=== PATIENT | female | born 1960 | race Caucasian/White ===

== ENCOUNTER → 2020-11-08 | Outpatient (CLI) | payer BC, SELFPAY ==
[2020-11-08 17:33] VITALS: BMI 27.6
[2020-11-08 23:03] LABS: Rheumatoid Factor < 10.0 IU/mL (<15)
[2020-11-10 16:21] LABS: ANTINUCLEAR ANTIBODIES DIRECT Negative (Negative)
== END | disposition home or self-care (01) ==
PROVIDERS: Referring Provider Nurse Practitioner; Visit Provider Nurse Practitioner
DX: E11.65 Type 2 diabetes mellitus with hyperglycemia (principal); L40.9 Psoriasis, unspecified
CPT/HCPCS: 86038; 86225; 86235; 86431

== ENCOUNTER → 2020-11-30 | Outpatient (CLI) | payer BC, SELFPAY ==
[2020-11-30 17:22] VITALS: BMI 27.4
[2020-11-30 22:10] LABS: Absolute Lymphocyte Count 3.89 X10^3/uL (0.83-4.51); Absolute Neutrophil Count 5.2 X10^3/uL (2.0-7.7); Basophil# 0.07 X10^3/uL; Basophil% 0.7 % (0-1); Eosinophils% 2.9 % (0-5); Hematocrit 43.5 % (37-47); Lymphocyte # 3.89 X10^3/ul (4.0); Mean Corp Hgb Conc 32.2 g/dL (32-36); Mean Corpuscular Hgb 28.5 pg (27.0-32.0); Mean Corpuscular Volume 88.4 fL (81-99); Monocyte# 1.04 X10^3/uL; Monocyte% 9.9 % (0-10); NRBC Flagged by Analyzer 0 % (0-5); Neutrophil % 49.4 % (47-70); Platelet Count 454 K/mm3 (150-450); RBC Distribution Width CV 12.2 % (11.6-14.6); RBC Distribution Width SD 39.7 fl (35.1-43.9); Red Blood Count 4.92 M/mm3 (4.2-5.4); White Blood Count 10.5 K/mm3 (4.4-11.0)
[2020-11-30 22:19] LABS: AST(SGOT) 8 U/L (15-37); Alanine Aminotransfer ALT/SGPT 26 U/L (13-56); Albumin, Serum 3.7 g/dL (3.2-5.0); Alkaline Phosphatase 124 U/L (45-117); Anion Gap 4 (5-15); BUN 14 mg/dL (7-18); Calcium,Total 9.3 mg/dL (8.5-10.1); Chloride 104 mmol/L (98-107); Creatinine, Serum 0.94 mg/dL (0.55-1.02); EST Glomerular Filtration Rate 65 mL/min (>60); Est Glom Filt Rate - Afr Amer 78 mL/min (>60); Globulin 3.6 g/dL (2.2-4.2); Glucose 214 mg/dL (74-106); Potassium 4.5 mmol/L (3.5-5.1); Protein, Total 7.3 g/dL (6.4-8.2); Sodium Level 136 mmol/L (136-145)
[2020-11-30 22:32] LABS: Hemoglobin A1c 10.9 % (3.8-5.6)
== END | disposition home or self-care (01) ==
PROVIDERS: Referring Provider Nurse Practitioner; Visit Provider Nurse Practitioner
DX: L60.8 Other nail disorders (principal); E11.65 Type 2 diabetes mellitus with hyperglycemia
CPT/HCPCS: 80053; 83036; 85025

== ENCOUNTER → 2021-08-31 | Outpatient (CLI) | payer BC, SELFPAY ==
[2021-08-31 22:53] LABS: Absolute Lymphocyte Count 4.05 X10^3/uL (0.83-4.51); Basophil# 0.07 X10^3/uL; Basophil% 0.7 % (0-1); Eosinophil# 0.39 X10^3/uL; Eosinophils% 4.2 % (0-5); Hematocrit 39.8 % (37-47); Lymphocyte # 4.05 X10^3/ul (0.83-4.51); Lymphocyte % 43.2 % (19-41); Mean Corp Hgb Conc 32.7 g/dL (32-36); Mean Corpuscular Hgb 29.6 pg (27.0-32.0); Mean Corpuscular Volume 90.7 fL (81-99); Mean Platelet Vol. 9.9 fl (6.2-12.0); Monocyte# 0.86 X10^3/uL; Monocyte% 9.2 % (0-10); NRBC Flagged by Analyzer 0 % (0-5); Neutrophil # 3.98 X10^3/uL (2.7-7.7); Neutrophil % 42.5 % (47-70); Platelet Count 329 K/mm3 (150-450); RBC Distribution Width CV 12.5 % (11.6-14.6); RBC Distribution Width SD 41.2 fl (35.1-43.9); Red Blood Count 4.39 M/mm3 (4.2-5.4); White Blood Count 9.4 K/mm3 (4.4-11.0)
[2021-08-31 23:06] LABS: ALB/GLOB Ratio 1.1 RATIO (0.9-2.4); AST(SGOT) 12 U/L (15-37); Alanine Aminotransfer ALT/SGPT 17 U/L (13-56); Albumin, Serum 3.7 g/dL (3.2-5.0); Alkaline Phosphatase 59 U/L (45-117); Anion Gap 5 (5-15); BUN 8 mg/dL (7-18); BUN/Creat Ratio 10.2 RATIO (10-20); Calcium,Total 9.4 mg/dL (8.5-10.1); Chloride 106 mmol/L (98-107); Creatinine, Serum 0.79 mg/dL (0.55-1.02); EST Glomerular Filtration Rate 79 mL/min (>60); Est Glom Filt Rate - Afr Amer 95 mL/min (>60); Globulin 3.5 g/dL (2.2-4.2); Glucose 150 mg/dL (74-106); Lipase 109 U/L (73-393); Potassium 3.9 mmol/L (3.5-5.1); Protein, Total 7.2 g/dL (6.4-8.2); Sodium Level 140 mmol/L (136-145)
[2021-08-31 23:28] LABS: Hemoglobin A1c 6.9 % (3.8-5.6)
== END | disposition home or self-care (01) ==
PROVIDERS: Visit Provider Nurse Practitioner
DX: E11.65 Type 2 diabetes mellitus with hyperglycemia (principal); R19.7 Diarrhea, unspecified; R42 Dizziness and giddiness; R11.0 Nausea; Z20.822 Contact with and (suspected) exposure to COVID-19
CPT/HCPCS: 80053; 83036; 83690; 85025

== ENCOUNTER → 2021-09-01 | Outpatient (CLI) | payer BC, SELFPAY | END | disposition home or self-care (01) | LOC: LABSPEC 10:00 | PROVIDERS: Referring Provider Nurse Practitioner; Visit Provider Nurse Practitioner | DX: R11.0 Nausea (principal); R19.7 Diarrhea, unspecified; Z20.822 Contact with and (suspected) exposure to COVID-19 | CPT/HCPCS: 87635; U0005; U0003 ==

== ENCOUNTER → 2021-10-05 | Outpatient (CLI) | payer BC, SELFPAY ==
[2021-10-05 23:05] LABS: Thyroid Stim Hormone (TSH) 2.33 uIU/mL (0.358-3.74)
== END | disposition home or self-care (01) ==
PROVIDERS: Referring Provider Nurse Practitioner; Visit Provider Nurse Practitioner
DX: E03.9 Hypothyroidism, unspecified (principal)
CPT/HCPCS: 84443

== ENCOUNTER → 2022-05-03 | Outpatient (CLI) | payer BC, SELFPAY ==
[2022-05-04 00:10] LABS: Absolute Lymphocyte Count 4.02 X10^3/uL (0.83-4.51); Absolute Neutrophil Count 5.6 X10^3/uL (2.0-7.7); Basophil# 0.08 X10^3/uL; Basophil% 0.7 % (0-1); Eosinophil# 0.34 X10^3/uL; Eosinophils% 3.1 % (0-5); Hematocrit 38.1 % (37-47); Hemoglobin 12.7 g/dL (12.0-15.0); Lymphocyte # 4.02 X10^3/ul (0.83-4.51); Lymphocyte % 36.1 % (19-41); Mean Corp Hgb Conc 33.3 g/dL (32-36); Mean Corpuscular Hgb 29.7 pg (27.0-32.0); Mean Corpuscular Volume 89.2 fL (81-99); Mean Platelet Vol. 9.8 fl (6.2-12.0); Monocyte# 1.12 X10^3/uL; Monocyte% 10.1 % (0-10); NRBC Flagged by Analyzer 0 % (0-5); Neutrophil # 5.55 X10^3/uL (2.7-7.7); Neutrophil % 49.7 % (47-70); Platelet Count 352 K/mm3 (150-450); RBC Distribution Width CV 12.4 % (11.6-14.6); RBC Distribution Width SD 40.6 fl (35.1-43.9); Red Blood Count 4.27 M/mm3 (4.2-5.4); White Blood Count 11.1 K/mm3 (4.4-11.0)
[2022-05-04 00:23] LABS: ALB/GLOB Ratio 1.2 RATIO (0.9-2.4); AST(SGOT) 10 U/L (15-37); Alanine Aminotransfer ALT/SGPT 19 U/L (13-56); Albumin, Serum 3.7 g/dL (3.2-5.0); Alkaline Phosphatase 78 U/L (45-117); Anion Gap 6 (5-15); BUN 16 mg/dL (7-18); BUN/Creat Ratio 19.2 RATIO (10-20); Calcium,Total 9.1 mg/dL (8.5-10.1); Chloride 106 mmol/L (98-107); Cholesterol 149 mg/dL (200); Creatinine, Serum 0.84 mg/dL (0.55-1.02); EST Glomerular Filtration Rate 73 mL/min (>60); Est Glom Filt Rate - Afr Amer 89 mL/min (>60); Globulin 3.2 g/dL (2.2-4.2); Glucose 173 mg/dL (74-106); High Density Lipoprotein 62 mg/dL; Potassium 4.1 mmol/L (3.5-5.1); Protein, Total 6.9 g/dL (6.4-8.2); Sodium Level 138 mmol/L (136-145); Triglycerides 84 mg/dL; Very Low Density Lipoprotein 17 mg/dL (5-40)
== END | disposition home or self-care (01) ==
PROVIDERS: Visit Provider Nurse Practitioner
DX: E11.65 Type 2 diabetes mellitus with hyperglycemia (principal)
CPT/HCPCS: 80053; 80061; 83036; 85025

== ENCOUNTER → 2023-04-23 | Outpatient (CLI) | payer BC, SELFPAY ==
[2023-04-23 21:41] LABS: Absolute Lymphocyte Count 2.91 X10^3/uL (0.83-4.51); Absolute Neutrophil Count 6.9 X10^3/uL (2.0-7.7); Basophil# 0.07 X10^3/uL; Basophil% 0.6 % (0-1); Eosinophil# 0.19 X10^3/uL; Eosinophils% 1.7 % (0-5); Hematocrit 40.5 % (37-47); Hemoglobin 13.2 g/dL (12.0-15.0); Lymphocyte # 2.91 X10^3/ul (0.83-4.51); Lymphocyte % 26.6 % (19-41); Mean Corp Hgb Conc 32.6 g/dL (32-36); Mean Corpuscular Hgb 29.5 pg (27.0-32.0); Mean Corpuscular Volume 90.6 fL (81-99); Mean Platelet Vol. 9.7 fl (6.2-12.0); Monocyte% 7.3 % (0-10); NRBC Flagged by Analyzer 0 % (0-5); Neutrophil # 6.92 X10^3/uL (2.7-7.7); Neutrophil % 63.5 % (47-70); Platelet Count 380 K/mm3 (150-450); RBC Distribution Width CV 12.5 % (11.6-14.6); RBC Distribution Width SD 41.1 fl (35.1-43.9); Red Blood Count 4.47 M/mm3 (4.2-5.4); White Blood Count 10.9 K/mm3 (4.4-11.0)
[2023-04-23 22:00] LABS: AST(SGOT) 11 U/L (15-37); Alanine Aminotransfer ALT/SGPT 18 U/L (13-56); Albumin, Serum 3.7 g/dL (3.2-5.0); Alkaline Phosphatase 81 U/L (45-117); Anion Gap 3 (5-15); BUN 11 mg/dL (7-18); BUN/Creat Ratio 12.2 RATIO (10-20); Calcium,Total 9.7 mg/dL (8.5-10.1); Chloride 107 mmol/L (98-107); Cholesterol 160 mg/dL (200); EST Glomerular Filtration Rate 67 mL/min (>60); Est Glom Filt Rate - Afr Amer 81 mL/min (>60); Globulin 3.7 g/dL (2.2-4.2); Glucose 253 mg/dL (74-106); High Density Lipoprotein 67 mg/dL; Potassium 4.5 mmol/L (3.5-5.1); Protein, Total 7.4 g/dL (6.4-8.2); Sodium Level 140 mmol/L (136-145); Triglycerides 113 mg/dL; Very Low Density Lipoprotein 23 mg/dL (5-40)
== END | disposition home or self-care (01) ==
PROVIDERS: Visit Provider Nurse Practitioner
DX: E78.5 Hyperlipidemia, unspecified (principal); E11.65 Type 2 diabetes mellitus with hyperglycemia
CPT/HCPCS: 80053; 80061; 85025

== ENCOUNTER → 2024-01-16 | Outpatient (CLI) | payer BC, SELFPAY ==
[2024-01-16 22:04] LABS: Absolute Lymphocyte Count 3.89 X10^3/uL (0.83-4.51); Absolute Neutrophil Count 4.2 X10^3/uL (2.0-7.7); Basophil# 0.08 X10^3/uL; Basophil% 0.9 % (0-1); Eosinophil# 0.26 X10^3/uL; Eosinophils% 2.8 % (0-5); Hematocrit 42.3 % (37-47); Hemoglobin 13.6 g/dL (12.0-15.0); Lymphocyte # 3.89 X10^3/ul (0.83-4.51); Lymphocyte % 41.8 % (19-41); Mean Corp Hgb Conc 32.2 g/dL (32-36); Mean Corpuscular Hgb 28.6 pg (27.0-32.0); Mean Corpuscular Volume 89.1 fL (81-99); Mean Platelet Vol. 10.1 fl (6.2-12.0); Monocyte# 0.86 X10^3/uL; Monocyte% 9.2 % (0-10); NRBC Flagged by Analyzer 0 % (0-5); Neutrophil # 4.21 X10^3/uL (2.7-7.7); Neutrophil % 45.2 % (47-70); Platelet Count 351 K/mm3 (150-450); RBC Distribution Width CV 12.2 % (11.6-14.6); RBC Distribution Width SD 39.9 fl (35.1-43.9); Red Blood Count 4.75 M/mm3 (4.2-5.4); White Blood Count 9.3 K/mm3 (4.4-11.0)
[2024-01-16 22:27] LABS: ALB/GLOB Ratio 1.1 RATIO (0.9-2.4); AST(SGOT) 9 U/L (15-37); Alanine Aminotransfer ALT/SGPT 26 U/L (13-56); Albumin, Serum 3.8 g/dL (3.2-5.0); Alkaline Phosphatase 91 U/L (45-117); Anion Gap 3 (5-15); BUN 12 mg/dL (7-18); BUN/Creat Ratio 14.4 RATIO (10-20); Calcium,Total 9.4 mg/dL (8.5-10.1); Chloride 106 mmol/L (98-107); Creatinine, Serum 0.84 mg/dL (0.55-1.02); EST Glomerular Filtration Rate 73 mL/min (>60); Est Glom Filt Rate - Afr Amer 88 mL/min (>60); Globulin 3.6 g/dL (2.2-4.2); Glucose 141 mg/dL (74-106); Potassium 4.4 mmol/L (3.5-5.1); Protein, Total 7.4 g/dL (6.4-8.2); Sodium Level 140 mmol/L (136-145)
== END | disposition home or self-care (01) ==
PROVIDERS: PCP Nurse Practitioner; Visit Provider Nurse Practitioner
DX: R10.32 Left lower quadrant pain (principal); E11.65 Type 2 diabetes mellitus with hyperglycemia; J01.00 Acute maxillary sinusitis, unspecified
CPT/HCPCS: 80053; 85025

== ENCOUNTER → 2024-06-05 | Outpatient (CLI) | payer BC, SELFPAY | END | disposition home or self-care (01) | PROVIDERS: PCP Nurse Practitioner; Visit Provider Nurse Practitioner | DX: R10.32 Left lower quadrant pain (principal) | CPT/HCPCS: 87086 ==

== ENCOUNTER → 2024-12-16 | Outpatient (CLI) | payer BC, SELFPAY ==
[2024-12-16 23:01] LABS: Absolute Neutrophil Count 4.1 X10^3/uL (2.0-7.7); Basophil# 0.06 X10^3/uL; Basophil% 0.6 % (0-1); Eosinophil# 0.16 X10^3/uL; Eosinophils% 1.7 % (0-5); Hematocrit 39.2 % (37-47); Hemoglobin 12.7 g/dL (12.0-15.0); Lymphocyte % 42.8 % (19-41); Mean Corp Hgb Conc 32.4 g/dL (32-36); Mean Corpuscular Hgb 29.3 pg (27.0-32.0); Mean Corpuscular Volume 90.3 fL (81-99); Mean Platelet Vol. 9.8 fl (6.2-12.0); Monocyte# 0.99 X10^3/uL; Monocyte% 10.6 % (0-10); NRBC Flagged by Analyzer 0 % (0-5); Neutrophil # 4.12 X10^3/uL (2.7-7.7); Neutrophil % 44.1 % (47-70); Platelet Count 353 K/mm3 (150-450); RBC Distribution Width CV 12.1 % (11.6-14.6); RBC Distribution Width SD 39.8 fl (35.1-43.9); Red Blood Count 4.34 M/mm3 (4.2-5.4); White Blood Count 9.4 K/mm3 (4.4-11.0)
[2024-12-16 23:43] LABS: ALB/GLOB Ratio 1.1 RATIO (0.9-2.4); AST(SGOT) 13 U/L (15-37); Alanine Aminotransfer ALT/SGPT 17 U/L (13-56); Albumin, Serum 3.9 g/dL (3.2-5.0); Alkaline Phosphatase 61 U/L (45-117); Anion Gap 4 (5-15); BUN 12 mg/dL (7-18); BUN/Creat Ratio 14.6 RATIO (10-20); Calcium,Total 9.6 mg/dL (8.5-10.1); Chloride 105 mmol/L (98-107); Cholesterol 148 mg/dL (200); Creatinine, Serum 0.82 mg/dL (0.55-1.02); EST Glomerular Filtration Rate 74 mL/min (>60); Est Glom Filt Rate - Afr Amer 90 mL/min (>60); Globulin 3.4 g/dL (2.2-4.2); Glucose 95 mg/dL (74-106); High Density Lipoprotein 69 mg/dL; Potassium 4.2 mmol/L (3.5-5.1); Protein, Total 7.3 g/dL (6.4-8.2); Sodium Level 138 mmol/L (136-145); Triglycerides 61 mg/dL; Very Low Density Lipoprotein 12 mg/dL (5-40)
== END | disposition home or self-care (01) ==
PROVIDERS: PCP Nurse Practitioner; Visit Provider Nurse Practitioner
DX: E11.65 Type 2 diabetes mellitus with hyperglycemia (principal); M32.9 Systemic lupus erythematosus, unspecified; L60.8 Other nail disorders; E78.5 Hyperlipidemia, unspecified
CPT/HCPCS: 80053; 80061; 85025

== ENCOUNTER → 2025-10-26 | Outpatient (CLI) | payer BC, SELFPAY ==
--- OUTSIDE RECORDS SUMMARY | 2025-10-26 22:20 | XMS RPT_ITS | CCD ---
Author Organization [facility] Care Team Providers Care Chief Deputy Name Role Phone CELENA RAMOS (TIRE TRIMMER HAND) Unavailable Unavaila ble CELENA RAMOS (TIRE TRIMMER HAND) Unavailable Unavaila ble Unavailable Primary Care Provider Unavailabl e Kline CANAL SUPERINTENDENT, Madonna Primary Care Unavailable Kline CANAL SUPERINTENDENT, Madonna Attending Unavailable Kline CANAL SUPERINTENDENT, Madonna Attending Unavailable Kline CANAL SUPERINTENDENT, Madonna Primary Care Unavailable Kline CANAL SUPERINTENDENT, Madonna Attending Unavailable Kline CANAL SUPERINTENDENT, Madonna Primary Care Unavailable SELF Referring Unavailable Kline CANAL SUPERINTENDENT-C, Madonna Primary Care Provider [phone] Kline CANAL SUPERINTENDENT-C, Madonna Attending Provider [phone] Kline CANAL SUPERINTENDENT-C, Madonna Referring Provider [phone] Allergies Allergy Classification Reported Allergen(s) Allergy Type Date of Onset Reaction(s) Facility (8 sources) Ciprofloxacin; Translations: [CIPROFLOXACIN] Drug Allergy 5 [facility] Repository (4 sources) Latex; Translations: [LATEX] Propensity to adverse reactions to drug (disorder) 7 [facility] Repository (4 sources) levoFLOXacin; Translations: [LEVOFLOXACIN] Drug Allergy 6 [facility] Repository (4 sources) natural latex rubber; Translations: [Latex, Natural Rubber] Allergy to substance 0 [facility] Medications Current Medications Medication Drug Class(es) Dates Sig (Normalized) Sig (Original) amoxicillin 875 mg / clavulanate 125 mg oral tablet (4 sources) Penicillin-class Antibacterial Start: 03-01-2025 End: 03-11-2025 take 1 tablet by mouth twice daily amoxicillin-clavu lanate potassium (AUGMENTIN) 875-125 mg per tablet Indications: Acute non-recurrent sinusitis, unspecified location Take 1 tablet by mouth two times a day for 10 days. 20 tablet 03/01/2025 03/11/2025 Active Start: 06-05-2024 End: 12-16-2024 Amoxicillin-Pot Clavulanate 875-125 mg tablet Discontinued 1 {tbl} PO TWICE A DAY June 05, 2024 12:00am December 16, 2024 5:04pm Start: 06-11-2023 End: 06-20-2023 Amoxicillin-Pot Clavulanate 875-125 mg tablet Discontinued 1 {tbl} PO TWICE A DAY June 11, 2023 12:00am June 20, 2023 10:11am Start: 06-11-2023 End: 06-20-2023 take 1 tablet by mouth twice daily Amoxicillin-Pot Clavulanate Discontinued 1 TABLET PO TWICE A DAY June 10, 2023 11:00pm June 20, 2023 9:11am benzonatate 100 mg oral capsule (4 sources) Non-narcotic Antitussive Start: 03-01-2025 End: 03-08-2025 take 1 capsule by mouth three times daily as needed for cough benzonatate (TESSALON PERLE) 100 mg capsule Indications: Acute non-recurrent sinusitis, unspecified location Take 1 capsule by mouth three times a day as needed for cough for up to 7 days. 21 capsule 03/01/2025 03/08/2025 Active Start: 09-24-2019 End: 03-01-2025 take 1 capsule by mouth three times daily as needed for cough Benzonatate 200 mg capsule Indications: URI with cough and congestion Take 1 capsule by mouth three times a day as needed for cough. 30 capsule 10/30/2024 03/01/2025 Discontinued (Course of therapy completed) cholecalciferol 0.125 mg oral capsule (3 sources) Vitamin D Start: 11-08-2020 take 1 capsule by mouth once daily Cholecalciferol (Vitamin D3) 125 mcg (5,000 unit) capsule Active 125 ug PO DAILY November 08, 2020 1:00am clotrimazole-betamet h dip-zinc 1-0.05-20 % cmpk (2 sources) Start: 07-02-2019 clotrimazole-betame th dip-zinc 1-0.05-20 % cmpk Indications: Dry skin Apply once daily as needed 1 Box 07/02/2019 Active Dapaglifloz Propaned-Metformin (Xigduo Xr) 10-1,000 mg tablet, IR - ER, biphasic 24hr (1 source) Start: 01-17-2024 take 1 tablet by mouth once daily Dapaglifloz Propaned-Metformin (Xigduo Xr) 10-1,000 mg tablet, IR - ER, biphasic 24hr Active 1 TABLET PO DAILY January 17, 2024 12:00am doxycycline monohydrate 100 mg oral capsule (2 sources) Tetracycline-class Drug Start: 10-30-2024 End: 11-04-2024 take 1 capsule by mouth twice daily doxycycline monohydrate (MONODOX) 100 mg capsule Indications: Nasal sore Take 1 capsule by mouth two times a day for 5 days. 10 capsule 10/30/2024 11/04/2024 Active fluticasone propionate 0.05 mg/actuat metered dose nasal spray (2 sources) Corticosteroid Start: 09-24-2019 take 2 spray(s) nasal route once daily fluticasone (FLONASE) 50 mcg/actuation nasal spray Indications: Sinobronchitis Use 2 Sprays in each nostril once daily. 1 Bottle 09/24/2019 Active 24 hr loratadine 10 mg / pseudoephedrine sulfate 240 mg extended release oral tablet (4 sources) alpha-Adrenergic Agonist Start: 06-20-2023 take 1 tablet by mouth every twenty-four hours Loratadine-Pseudoep hedrine (Claritin-D 24 Hour) 10-240 mg tablet extended release 24 hr Active 1 {tbl} PO DAILY June 20, 2023 12:00am Start: 06-20-2023 take 1 tablet by katina th once daily, then take 1 tablet by mouth every twenty-four hours Loratadine-Pseudoephedrine (Claritin-D 2 4 Hour) 10-240 mg tablet extended release 24 hr Active 1 TABLET PO DAILY June 19, 2023 11:00pm Start: 03-13-2017 End: 03-01-2025 take 1 tablet by mouth once daily as needed for congestion loratadine-pseudoephedrine ER (CLARITIN- D 12 HOUR) 5-120 mg per tablet Indications: Acute recurrent maxillary sinusitis Take one tablet by mouth once daily as needed for congestion 10 tablet 03/13/2017 03/01/2025 Discontinued (Course of therapy completed) meloxicam 15 mg oral tablet (1 source) Nonsteroidal Anti-inflammatory Drug Start: 12-16-2024 take 1 tablet by mouth once daily Meloxicam 15 mg tablet Active 15 mg PO daily December 16, 2024 1:00am metFORMIN hydrochloride 1000 mg oral tablet (3 sources) Biguanide Start: 03-24-2024 End: 12-16-2024 take 1 tablet by mouth twice daily metFORMIN (GLUCOPHAGE) 1,000 mg tablet 1000 MG ORALLY TWICE A DAY 01/02/2025 Active MOUNJARO 5 mg/0.5 mL pen injector (1 source) Start: 02-24-2025 inject 5 mg by subcutaneous injection every week MOUNJARO 5 mg/0.5 mL pen injector 5 MG (0.5 ML) SUBCUTANEOUSLY EVERY WEEK FOR 30 DAYS 02/24/2025 Active mupirocin 0.02 mg/mg topical ointment (2 sources) RNA Synthetase Inhibitor Antibacterial Start: 10-30-2024 End: 11-09-2024 mupirocin (BACTROBAN) 2 % ointment Indications: Nasal sore Apply to affected area three times a day for 10 days. 15 g 10/30/2024 11/09/2024 Active 24 hr niacin 1000 mg extended release oral tablet (5 sources) Nicotinic Acid Start: 11-08-2020 take 1 tablet by mouth at bedtime Niacin 1,000 mg tablet extended release Active 1000 mg PO AT BEDTIME November 08, 2020 1:00am Start: 07-02-2018 take 1 tablet by katina th once daily at bedtime niacin ER (NIASPAN) 500 mg tablet Take 1 tablet by mouth daily at bedtime. 90 tablet 2 07/02/2018 Active pravastatin sodium 20 mg oral tablet (17 sources) HMG-CoA Reductase Inhibitor Start: 04-26-2020 End: 12-16-2024 take 1 tablet by mouth at bedtime Pravastatin 20 mg tablet Active 20 mg PO AT BEDTIME December 16, 2024 5:07pm 12 hr pseudoephedrine hydrochloride 120 mg extended release oral tablet (1 source) alpha-Adrenergi c Agonist Start: 03-01-2025 End: 03-11-2025 take 1 tablet by mouth every twelve hours Pseudoephedrine HCl (SUDAFED 12 HOUR) 120 mg TbER Indications: Acute non-recurrent sinusitis, unspecified location Take 1 tablet by mouth every 12 hours for 10 days. 20 tablet 03/01/2025 03/11/2025 Active Tirzepatide 5 mg/0.5 mL pen injector (2 sources) Start: 05-07-2025 Tirzepatide 5 mg/0.5 mL pen injector Active 5 mg SC EVERY WEEK 2.5 May 07, 2025 3:52pm Start: 04-22-2024 End: 05-07-2025 Tirzepatide 5 mg/0.5 mL pen injector Discontinued 5 mg SC EVERY WEEK 2.5 April 22, 2024 12:00am May 07, 2025 3:52pm vitamin b12 1 mg oral tablet (3 sources) Vitamin B12 Start: 11-08-2020 take 1 tablet by mouth once daily Cyanocobalamin (Vitamin B-12) 1,000 mcg tablet Active 1000 ug PO DAILY November 08, 2020 1:00am vitamin e 90 mg oral capsule (3 sources) Start: 11-08-2020 take 1 capsule by mouth twice daily Vitamin E 200 unit capsule Active 200 U PO TWICE A DAY November 08, 2020 1:00am Zinc (3 sources) Start: 12-22-2020 take 1 tablet by mouth once daily Zinc 50 mg tablet Active 50 mg PO DAILY December 22, 2020 1:00am Start: 12-22-2020 take 50 mg by mouth once daily Zinc Active 50 MG PO DAILY December 22, 2020 12:00am Start: 12-22-2020 take 50 mg by mouth once daily Zinc Active 50 MG PO DAILY December 22, 2020 1:00am Completed/Discontinued Medications Medication Drug Class(es) Dates Sig (Normalized) Sig (Original) clarithromycin 500 mg oral tablet (6 sources) Macrolide Antimicrobial Start: 06-20-2023 End: 06-05-2024 take 1 tablet by mouth twice daily Clarithromycin 500 mg tablet Discontinued 500 mg PO TWICE A DAY July 31, 2023 2:47pm January 16, 2024 6:27pm 24 hr dapagliflozin 10 mg / metFORMIN hydrochloride 1000 mg extended release oral tablet (1 source) Biguanide, Sodium-Glucose Cotransporter 2 Inhibitor Start: 01-17-2024 End: 03-24-2024 Dapaglifloz Propaned-Metformin (Xigduo Xr) 10-1,000 mg tablet, IR - ER, biphasic 24hr Discontinued 1 {tbl} PO DAILY January 17, 2024 1:00am March 24, 2024 1:42pm Dulaglutide (20 sources) GLP-1 Receptor Agonist Start: 04-23-2023 End: 03-24-2024 Dulaglutide 3 mg/0.5 mL pen injector Discontinued 3 mg SC EVERY WEEK 6.5 April 23, 2023 12:00am March 24, 2024 1:42pm Start: 04-23-2023 Dulaglutide Ac tive 3 MG SC EVERY WEEK 6.5 April 22, 2023 11:00pm Start: 01-13-2021 End: 04-23-2023 Dulaglutide (Trulicity) 1.5 mg/0.5 mL pen injector Discontinued 1.5 mg SC EVERY WEEK February 01, 2022 3:39pm May 03, 2022 5:19pm Start: 11-30-2020 End: 12-22-2020 Dulaglutide (Trulicity) 0.75 mg/0.5 mL pen injector Discontinued 0.75 mg SC EVERY WEEK 2.5 December 22, 2020 6:11pm December 22, 2020 6:21pm fluconazole 100 mg oral tablet (12 sources) Azole Antifungal Start: 05-03-2022 End: 04-23-2023 take 1 tablet by mouth once daily Fluconazole 100 mg tablet Discontinued 100 mg PO daily May 03, 2022 12:00am April 23, 2023 3:14pm Start: 11-30-2020 End: 03-09-2021 take 1 tablet by mouth once daily Fluconazole 100 mg tablet Discontinued 100 mg PO daily March 09, 2021 5:14pm March 09, 2021 5:30pm glipiZIDE 10 mg oral tablet (7 sources) Sulfonylurea Start: 11-08-2020 End: 12-22-2020 take 1 tablet by mouth once daily Glipizide 10 mg tablet Discontinued 10 mg PO DAILY November 08, 2020 1:00am December 22, 2020 6:09pm Start: 02-16-2020 End: 10-30-2024 take 1 tablet by mouth twice daily Glipizide 10 mg tablet Discontinued 10 mg PO TWICE A DAY December 22, 2020 6:09pm January 13, 2021 6:05pm hydroxychloroquine sulfate 200 mg oral tablet (18 sources) Antimalarial, Antirheumatic Agent Start: 03-15-2021 End: 12-16-2024 take 1 tablet by mouth twice daily Hydroxychloroquine 200 mg tablet Discontinued 200 mg PO TWICE A DAY 180 February 01, 2022 3:39pm May 03, 2022 5:19pm Start: 03-09-2021 End: 03-15-2021 take 1 tablet by mouth once daily Hydroxychloroquine 200 mg tablet Discontinued 200 mg PO DAILY 90 March 09, 2021 12:00am March 15, 2021 2:24pm metFORMIN hydrochloride 1000 mg / SITagliptin 50 mg oral tablet (16 sources) Biguanide, Dipeptidyl Peptidase 4 Inhibitor Start: 07-20-2020 End: 03-24-2024 Sitagliptin Phos-Metformin (Janumet) 50-1,000 mg tablet Discontinued 1 {tbl} PO TWICE A DAY 180 January 16, 2024 6:36pm March 24, 2024 1:42pm metroNIDAZOLE 250 mg oral tablet (3 sources) Nitroimidazole Antimicrobial Start: 06-05-2024 End: 06-15-2024 take 1 tablet by mouth three times daily Metronidazole 250 mg tablet Discontinued 250 mg PO THREE TIMES A DAY 30 June 05, 2024 12:00am June 14, 2024 12:00am June 15, 2024 12:04am Start: 01-16-2024 End: 01-26-2024 take 1 tablet by mouth three times daily Metronidazole 250 mg tablet Discontinued 250 mg PO THREE TIMES A DAY 30 January 16, 2024 1:00am January 25, 2024 1:00am January 26, 2024 1:16am promethazine hydrochloride 12.5 mg oral tablet (3 sources) Phenothiazine Start: 08-31-2021 End: 10-05-2021 take 1 tablet by mouth every six hours as needed for nausea and vomiting Promethazine 12.5 mg tablet Discontinued 12.5 mg PO EVERY 6 HOURS as needed for nausea and vomiting August 31, 2021 12:00am October 05, 2021 6:35pm Tirzepatide 2.5 mg/0.5 mL pen injector (1 source) Start: 03-24-2024 End: 04-21-2024 Tirzepatide 2.5 mg/0.5 mL pen injector Discontinued 2.5 mg SC EVERY WEEK 01 16March 24, 2024 12:00am April 20, 2024 12:00am April 21, 2024 12:05am Problems Active Problems Problem Classification Problem Date Documented Da te Episodic/Chronic Abdominal pain (4 sources) Left lower quadrant pain; Translations: [Left lower quadrant pain] Onset: 06-19-2024 01-16-2024 Episodic Conditions associated with dizziness or vertigo (3 sources) Dizziness; Translations: [Dizziness and giddiness] 08-31-2021 Episodic Diabetes mellitus with complications (4 sources) Type II diabetes mellitus uncontrolled; Translations: [Uncontrolled type 2 diabetes mellitus] Onset: 01-03-2025 03-10-2021 Chronic Diabetes mellitus without complication (3 sources) Type 2 diabetes mellitus without complications; Translations: [Type 2 diabetes mellitus without complication] Onset: 11-14-2017 11-14-2017 Chronic Disorders of lipid metabolism (6 sources) Mixed hyperlipidemia; Translations: [Hyperlipidemia] Onset: 11-14-2017 05-04-2022 Chronic Genitourinary symptoms and ill-defined conditions (2 sources) Increased frequency of urination; Translations: [Frequency of micturition] 05-25-2023 Episodic Immunizations and screening for infectious disease (4 sources) Encounter for immunization; Translations: [Contact with or exposure to other viral diseases] Onset: 10-16-2018 08-31-2021 Episodic Mycoses (6 sources) Candidal vulvovaginitis; Translations: [Candidiasis of vulva and vagina] 12-01-2020 Episodic Nausea and vomiting (3 sources) Nausea; Translations: [Nausea] 08-31-2021 Episodic Other connective tissue disease (3 sources) Hand pain; Translations: [Pain in right hand] 12-01-2020 Episodic Other connective tissue disease (3 sources) Swelling of hand; Translations: [Other specified soft tissue disorders] 12-01-2020 Episodic Other gastrointestinal disorders (3 sources) Diarrhea; Translations: [Diarrhea, unspecified] 10-07-2021 Episodic Other lower respiratory disease (2 sources) Cough; Translations: [Cough] 06-11-2023 Episodic Other non-traumatic joint disorders (1 source) Bilateral pain of joint of hands; Translations: [Pain in joints of right hand] 12-16-2024 Episodic Other skin disorders (3 sources) Pitting of nails; Translations: [Other nail disorders] 11-09-2020 Episodic Other upper respiratory disease (1 source) Lesion of nose; Translations: [Other specified disorders of nose and nasal sinuses] 10-30-2024 Episodic Other upper respiratory infections (1 source) Chronic sinusitis; Translations: [Chronic sinusitis, unspecified] 10-30-2024 Chronic Other upper respiratory infections (5 sources) Acute maxillary sinusitis; Translations: [Acute maxillary sinusitis, unspecified] 06-11-2023 Episodic Substance-related disorders (3 sources) Nicotine dependence, unspecified, uncomplicated; Translations: [Tobacco user] Onset: 11-14-2017 10-16-2018 Chronic Systemic lupus erythematosus and connective tissue disorders (3 sources) Lupus erythematosus; Translations: [Systemic lupus erythematosus, unspecified] 05-04-2022 Chronic Thyroid disorders (3 sources) Hypothyroidism; Translations: [Hypothyroidism, unspecified] 10-07-2021 Chronic Past or Other Problems Problem Classification Problem Date Documented Da te Episodic/Chronic Other skin disorders (2 sources) Xeroderma; Translations: [Xerosis cutis] Onset: 11-14-2017 Resolved: 10-16-2018 10-16-2018 Episodic Results Test Name Value Interpretation Reference Range Facility [facility] 03-01-2025 [facility] Office Visit (DEMETRISWA) BELGICA MARTINEZ ([id number]) 1960 F Date Time Provider Department 03/01/25 9:00 AM MAYTE SHULTZ During your visit today, we recorded the following information about you: Temperature Pulse Respiration Blood pressure 98.8 degrees 92/minute 16/minute 94/57 Weight 48.7 kg Mayte Shultz PA-C 03/01/2025 9:26 AM Signed This note was created using NoteWriter. Subjective Belgicamatt Martinez is a 64 year old female. Patient is a 64-year-old female who complains of worsening congestion, sinus pressure, facial pain, sore throat and loose cough that she has been experiencing for the past 3 weeks. Patient reports no fever, chills or myalgia. Patient states that her symptoms are significantly worse at night and when she awakens in the morning. Patient has no history of asthma or COPD and states that she smokes occasionally. Sinus Problem Associated symptoms include congestion, coughing and a sore throat. Review of Systems HENT: Positive for congestion, ear pain, postnasal drip, sinus pressure, sinus pain and sore throat. Respiratory: Positive for cough. All other systems reviewed and are negative. Objective BP 94/57 Pulse 92 Temp 37.1 ?C (98.8 ?F) Resp 16 Wt 48.7 kg (107 lb 5.8 oz) SpO2 96% BMI 18.43 kg/m? Physical Exam Vitals and nursing note reviewed. Constitutional: Appearance: Normal appearance. She is normal weight. HENT: Head: Normocephalic and atraumatic. Right Ear: Tympanic membrane, ear canal and external ear normal. Left Ear: Tympanic membrane, ear canal and external ear normal. Nose: Congestion present. Mouth/Throat: Mouth: Mucous membranes are moist. Pharynx: Oropharynx is clear. Eyes: Extraocular Movements: Extraocular movements intact. Conjunctiva/sclera: Conjunctivae normal. Pupils: Pupils are equal, round, and reactive to light. Cardiovascular: Rate and Rhythm: Normal rate and regular rhythm. Pulses: Normal pulses. Heart sounds: Normal heart sounds. Pulmonary: Effort: Pulmonary effort is normal. Breath sounds: Normal breath sounds. Musculoskeletal: Cervical back: Normal range of motion and neck supple. Skin: General: Skin is warm and dry. Capillary Refill: Capillary refill takes less than 2 seconds. Neurological: General: No focal deficit present. Mental Status: She is alert and oriented to person, place, and time. Psychiatric: Mood and Affect: Mood normal. Behavior: Behavior normal. Thought Content: Thought content normal. Judgment: Judgment normal. Assessment and Plan Physical exam findings as noted above. Patient was provided with prescriptions for Augmentin 875-125 mg, Sudafed 120 mg and Tessalon 100 mg. Supportive care instructions were discussed and the patient verbalizes clear understanding of same. CLINICAL IMPRESSION: Acute Sinusitis ASSESSMENT/PLAN: 1. Acute non-recurrent sinusitis, unspecified location - ICD9: 461.9, ICD10: J01.90 - AMOXICILLIN 875 MG-POTASSIUM CLAVULANATE 125 MG TABLET - BENZONATATE 100 MG CAPSULE - PSEUDOEPHEDRINE ER 120 MG TABLET,EXTENDED RELEASE MDM Risk of Complications, Morbidity, and/or Mortality Presenting problems: low Diagnostic procedures: low Management options: low Mayte Shultz PA-C Referring Provider: SELF [200] Allergies As of Date: 03/01/2025 Noted Allergy Reaction CIPROFLOXACIN 07/15/2015 2 - Rash LATEX 11/22/2016 2 - Rash Levaquin (LEVOFLOXACIN) 09/11/2016 4 - Hives Date Reviewed: 03/01/2025 Reviewed by: Elle Mares MA - Fully Assessed Reason for Visit: Sinus Problem [99] Cmt: Has had cough and congestion for 3 weeks, has been using otc meds with no releif Primary Visit Diagnosis:Acute non-recurrent sinusitis, unspecified location [J01.90] Order(s):amoxicillin -clavulanate potassium (AUGMENTIN) 875-125 mg per tabletTake 1 tablet by mouth two times a day for 10 days.Disp: 20 tabletRfl: 0 benzonatate (TESSALON PERLE) 100 mg capsuleTake 1 capsule by mouth three times a day as needed for cough for up to 7 days.Disp: 21 capsuleRfl: 0 Pseudoephedrine HCl (SUDAFED 12 HOUR) 120 mg TbERTake 1 tablet by mouth every 12 hours for 10 days.Disp: 20 tabletRfl: 0 Prescriptions as of 03/01/2025 - metFORMIN (GLUCOPHAGE) 1,000 mg tablet 1000 MG ORALLY TWICE A DAY - MOUNJARO 5 mg/0.5 mL pen injector 5 MG (0.5 ML) SUBCUTANEOUSLY EVERY WEEK FOR 30 DAYS - amoxicillin-clavulan ate potassium (AUGMENTIN) 875-125 mg per tablet Take 1 tablet by mouth two times a day for 10 days. - benzonatate (TESSALON PERLE) 100 mg capsule Take 1 capsule by mouth three times a day as needed for cough for up to 7 days. - Pseudoephedrine HCl (SUDAFED 12 HOUR) 120 mg TbER Take 1 tablet by mouth every 12 hours for 10 days. - JANUMET 50-1,000 mg per tablet TAKE 1 TABLET BY MOUTH TWICE A DAY WITH MEALS - pravastatin (PRAVACHOL) 20 mg tablet TAKE 1 TA (more content not included)... Normal [facility] CBC W/Diff, Automatedon 11-20 Absolute Lymph 4.00 X10 3/uL Normal 0.83-4.51 [facility] Comment on above: Performed By: #### L 500.4100, L500.4050, L100.0100 #### [facility] [address] [place], [address] Absolute Neut 4.1 X10 3/uL Normal 2.0-7.7 [facility] Comment on above: Performed By: #### L 500.4100, [id number], L100.0100 #### [facility] [address] [place], [address] Basophils/100 WBC (Bld) 0.6 % Normal 0-1 [facility] Comment on above: Performed By: #### L 500.4100, [id number], L100.0100 #### [facility] [address] [place], [address] Eosinophils/100 WBC (Bld) 1.7 % Normal 0-5 [facility] Comment on above: Performed By: #### L 500.4100, [id number], L100.0100 #### [facility] [address] [place], [address] Erythrocyte distribution width (RBC) [Ratio] 12.1 % Normal 11.6-14.6 [facility] Comment on above: Performed By: #### L 500.4100, [id number], [id number] #### [facility] [address] [place], [address] Hematocrit (Bld) [Volume fraction] 39.2 % Normal 37-47 [facility] Comment on above: Performed By: #### L 500.4100, [id number], [id number] #### [facility] [address] [place], [address] Hemoglobin (Bld) [Mass/Vol] 12.7 g/dL Normal 12.0-15.0 [facility] Comment on above: Performed By: #### L 500.4100, [id number], L100.0100 #### [facility] [address] [place], [address] IG% 0.200 Normal 0.0-0.9 [facility] Comment on above: Result Comment: IG% - Immature Granulocytes (promyelocytes, myelocytes and metamyelocytes) > 1% indicates that a LEFT SHIFT is Present. Performed By: #### L 500.4100, [id number], L100.0100 #### [facility] [address] [place], [address] Lymphocytes/100 WBC (Bld) 42.8 % High 19-41 [facility] Comment on above: Performed By: #### L 500.4100, [id number], L100.0100 #### [facility] [address] [place], [address] MCH (RBC) [Entitic mass] 29.3 pg Normal 27.0-32.0 [facility] Comment on above: Performed By: #### L 500.4100, [id number], L100.0100 #### [facility] [address] [place], [address] MCHC (RBC) [Mass/Vol] 32.4 g/dL Normal 32-[address] [facility] Comment on above: Performed By: #### L 500.4100, [id number], L100.0100 #### [facility] [address] [place], [address] MCV (RBC) [Entitic vol] 90.3 fL Normal 81-99 [facility] Comment on above: Performed By: #### L 500.4100, [id number], L100.0100 #### [facility] [address] [place], [address] Monocytes/100 WBC (Bld) 10.6 % High 0-10 [facility] Comment on above: Performed By: #### L 500.4100, [id number], L100.0100 #### [facility] [address] [place], [address] Neutrophils/100 WBC (Bld) 44.1 % Low 47-70 [facility] Comment on above: Performed By: #### L 500.4100, [id number], L100.0100 #### [facility] [address] [place], [address] Nucleated RBC (Bld) [#/Vol] 0 10*3/uL Normal 0-5 [facility] Comment on above: Performed By: #### L 500.4100, [id number], L100.0100 #### [facility] [address] [place], [address] Platelet mean volume (Bld) [Entitic vol] 9.8 fL Normal 6.2-12.0 [facility] Comment on above: Performed By: #### L 500.4100, [id number], L100.0100 #### [facility] Laboratory [address] [place], [address] Platelets (Bld) [#/Vol] 353 10*3/uL Normal 150-450 [facility] Comment on above: Performed By: #### L 500.4100, L500.4050, L100.0100 #### [facility] [address] [place], [address] RBC (Bld) [#/Vol] 4.34 10*6/uL Normal 4.2-5.4 [facility] Comment on above: Performed By: #### L 500.4100, L500.4050, L100.0100 #### [facility] [address] [place], [address] RDW SD 39.8 fl Normal 35.1-43.9 [facility] Comment on above: Performed By: #### L 500.4100, L500.4050, L100.0100 #### [facility] [address] [place], [address] WBC (Bld) [#/Vol] 9.4 10*3/uL Normal 4.4-11.0 [facility] Comment on above: Performed By: #### L 500.4100, L500.4050, L100.0100 #### [facility] [address] [place], [address] Comprehensive Metabolic Prof [facility] 12-16-2024 Albumin [Mass/Vol] 3.9 g/dL Normal 3.2-5.0 [facility] Comment on above: Performed By: #### L 500.4100, L500.4050, L100.0100 #### [facility] [address] [place], [address] Albumin/Globulin [Mass ratio] 1.1 {ratio} Normal 0.9-2.4 [facility] Comment on above: Performed By: #### L 500.4100, L500.4050, L100.0100 #### [facility] [address] [place], [address] ALK P 61 U/L Normal 45-117 [facility] Comment on above: Performed By: #### L 500.4100, L500.4050, L100.0100 #### [facility] [address] [place], [address] ALT [Catalytic activity/Vol] 17 U/L Normal 13-56 [facility] Comment on above: Performed By: #### L 500.4100, L500.4050, L100.0100 #### [facility] [address] [place], [address] AST [Catalytic activity/Vol] 13 U/L Low 15-37 [facility] Comment on above: Performed By: #### L 500.4100, L500.4050, L100.0100 #### [facility] [address] [place], [address] Bilirubin [Mass/Vol] 0.30 mg/dL Normal 0.20-1.00 [facility] Comment on above: Result Comment: For patients on eltrombopag therapy, use of Dimension [place] TBIL is not recommended. Performed By: #### L 500.4100, L500.4050, L100.0100 #### [facility] [address] [place], [address] BUN/CRE 14.6 RATIO Normal 10-20 [facility] Comment on above: Performed By: #### L 500.4100, L500.4050, L100.0100 #### [facility] [address] [place], [address] CA,Total 9.6 mg/dL Normal 8.5-10.1 [facility] Comment on above: Performed By: #### L 500.4100, L500.4050, L100.0100 #### [facility] [address] [place], [address] Chloride [Moles/Vol] 105 mmol/L Normal 98-107 [facility] Comment on above: Performed By: #### L 500.4100, L500.4050, L100.0100 #### [facility] [address] [place], [address] CO2 [Moles/Vol] 30.0 mmol/L Normal 21.0-32.0 [facility] Comment on above: Performed By: #### L 500.4100, L500.4050, L100.0100 #### [facility] [address] [place], [address] Creatinine [Mass/Vol] 0.82 mg/dL Normal 0.55-1.[address] [facility] Comment on above: Result Comment: The validity of the calculated GFR GFRAA in patients over 70 years has not been determined. Clinical correlation is essential. Performed By: #### L 500.4100, L500.4050, L100.0100 #### [facility] [address] [place], [address] EST GFR - AA 90 mL/min Normal >60 [facility] Comment on above: Result Comment: Afri can [place]an GFR Calc Performed By: #### L 500.4100, L500.4050, L100.0100 #### [facility] [address] [place], [address] GAP 4 Low 5-15 [facility] Comment on above: Performed By: #### L 500.4100, L500.4050, L100.0100 #### [facility] [address] [place], [address] GFR/1.73 sq M.predicted among non-blacks MDRD (S/P/Bld) [Vol rate/Area] 74 mL/min/{1.73_m2} Normal >60 [facility] Comment on above: Result Comment: Non- GFR Calc Performed By: #### L 500.4100, L500.4050, L100.0100 #### [facility] [address] [place], [address] Globulin (S) [Mass/Vol] 3.4 g/dL Normal 2.2-4.2 [facility] Comment on above: Performed By: #### L 500.4100, L500.4050, L100.0100 #### [facility] [address] [place], [address] Glucose [Mass/Vol] 95 mg/dL Normal 74-106 [facility] Comment on above: Performed By: #### L 500.4100, L500.4050, L100.0100 #### [facility] [address] [place], [address] Potassium [Moles/Vol] 4.2 mmol/L Normal 3.5-5.[address] [facility] Comment on above: Performed By: #### L 500.4100, L500.4050, L100.0100 #### [facility] [address] [place], [address] Sodium [Moles/Vol] 138 mmol/L Normal 136-145 [facility] Comment on above: Performed By: #### L 500.4100, L500.4050, L100.0100 #### [facility] [address] [place], [address] T PROT 7.3 g/dL Normal 6.4-8.2 [facility] Comment on above: Performed By: #### L 500.4100, L500.4050, L100.0100 #### [facility] [address] [place], [address] Urea nitrogen [Mass/Vol] 12 mg/dL Normal 7-18 [facility] Comment on above: Performed By: #### L 500.4100, L500.4050, L100.0100 #### [facility] [address] [place], [address] Lipid Profileon 12-16-2024 Cholesterol [Mass/Vol] 148 mg/dL Normal 200 [facility] Comment on above: Result Comment: <200 mg/dL Desirable 200-240 mg/dL Borderline >240 mg/dL High Risk Performed By: #### L 500.4100, L500.4050, L100.0100 #### [facility] [address] [place], [address] Cholesterol in HDL [Mass/Vol] 69 mg/dL Normal [facility] Comment on above: Result Comment: The drugs N-Acetylcysteine and Metamizole may falsely depress this assay. Reference Range HDL <40 mg/dL Low HDL Cholesterol HDL >or= 60 mg/dL High HDL Cholesterol Performed By: #### L 500.4100, L500.4050, L100.0100 #### [facility] [address] [place], [address] Cholesterol in LDL [Mass/Vol] 67 mg/dL Normal 0-130 [facility] Comment on above: Performed By: #### L 500.4100, L500.4050, L100.0100 #### [facility] [address] [place], [address] Cholesterol in VLDL [Mass/Vol] 12 mg/dL Normal 5-40 [facility] Comment on above: Performed By: #### L 500.4100, L500.4050, L100.0100 #### [facility] [address] [place], [address] Triglyceride [Mass/Vol] 61 mg/dL Normal [facility] Comment on above: Result Comment: The drugs N-Acetylcysteine and Metamizole may falsely depress this assay. Serum Triglycerides Reference Interval Normal <150 mg/dL Borderline high 150 - 199 mg/dL High 200 - 499 mg/dL Very High > or = 500 mg/dL Performed By: #### L 500.4100, L500.4050, L100.0100 #### [facility] [address] [place], [address] CNOVon 10-30-2024 CNOV Office Visit (WALKWA) KINGSLEYBELGICA ([id number]) 1960 F Date Time Provider Department 10/30/24 9:40 AM ISAIAS ESQUIVEL During your visit today, we recorded the following information about you: Temperature Pulse Blood pressure Weight 98.6 degrees 92/minute 114/76 51 kg Isaias Esquivel PA-C 10/30/2024 10:09 AM Signed Surgical mask and gloves worn for all in-person care. 10/30/2024 Patient presents with: Viral Syndrome: Congestion for 4 days, sore throat ears feel congestion SUBJECTIVE: This is a 64 year old that is here today for concern for URI symptoms. HPI per the patient. The patient complains of cough, ear fullness, sore throat, and sinus congestion/pressure/ drainage x 4-5 days. She reports feeling feverish 2-3 days ago, but no temps taken. No feeling like that since. Has a large, tender, sore in the left nostril. Denies chills, sweats, body aches. Patient denies wheezing, shortness of breath, increased WOB, or chest pain. COVID exposure: none Influenza exposure: none RSV exposure: none Covid Immunization Dates Overdue - Covid-19 Vaccine ( season) Overdue since 07/20/2024 09/26/2021 Outside Immunization: COVID-19, mRNA, LNP-S, PF, 100 mcg/0.5mL dose or 50 mcg/0.25mL dose 03/14/2021 Outside Immunization: COVID-19, mRNA, LNP-S, PF, 100 mcg/0.5mL dose or 50 mcg/0.25mL dose 02/17/2021 Outside Immunization: COVID-19, mRNA, LNP-S, PF, 100 mcg/0.5mL dose or 50 mcg/0.25mL dose COVID vaccine this year: none Influenza vaccine this year: none RSV vaccine this year: none Asthma: none Pneumonia: none Tobacco: none Pain on scale of 0-10 with 0 being no pain and 10 being greatest pain: - Nothing makes the symptoms better. Nothing makes them worse. Self-treatment:. none The severity is mild and the symptoms are not improving. The patient did not have a similar problem in the last 3 months. The patient did not take any antibiotics in the last 3 months. Barriers to learning: none. Reviewed meds, OTCs, herbals or supplements. Reviewed allergies, medications, social history, and past medical history. PAST MEDICAL HISTORY Diagnosis Date Arthritis Diabetes (HCC) History of migraine headaches Hyperlipidemia ALLERGIES Ciprofloxacin, Latex, and Levaquin [Levofloxacin] MEDICATIONS Current Outpatient Medications Medication Sig JANUMET 50-1,000 mg per tablet TAKE 1 TABLET BY MOUTH TWICE A DAY WITH MEALS pravastatin (PRAVACHOL) 20 mg tablet TAKE 1 TABLET BY MOUTH EVERY DAY glipiZIDE (GLUCOTROL) 10 mg tablet TAKE 1 TABLET BY MOUTH TWICE A DAY BEFORE MEALS fluticasone (FLONASE) 50 mcg/actuation nasal spray Use 2 Sprays in each nostril once daily. Benzonatate 200 mg capsule Take 1 capsule by mouth three times daily as needed for Cough. clotrimazole-betamet h dip-zinc 1-0.05-20 % cmpk Apply once daily as needed blood sugar diagnostic (MesosphereTOUCH ULTRA TEST) test strip Patient tests twice daily DX E11.9 PLEASE FILL WITH ONE TOUCH ULTRA2 BLUE niacin ER (NIASPAN) 500 mg tablet Take 1 tablet by mouth daily at bedtime. loratadine-pseudoeph edrine ER (CLARITIN-D 12 HOUR) 5-120 mg per tablet Take one tablet by mouth once daily as needed for congestion Lancets (ONETOUCH ULTRASOFT LANCETS) lancets Patient tests twice daily DX E11.9 PLEASE FILL WITH ONE TOUCH ULTRA2 No current facility-administere d medications for this visit. Medications and allergies reviewed by this provider. SOCIAL HISTORY Social History Tobacco Use Smoking status: Every Day Types: Cigarettes Smokeless tobacco: Never Substance Use Topics Alcohol use: No Drug use: No REVIEW OF SYSTEMS Review of Systems Constitutional: Negative. HENT: Positive for congestion, postnasal drip, rhinorrhea and sinus pressure. Ear fullness Eyes: Negative. Respiratory: Positive for cough. Negative for chest tightness. Cardiovascular: Negative. Gastrointestinal: Negative. Endocrine: Negative. Genitourinary: Negative. Musculoskeletal: Negative. Skin: Negative. Nasal sore Allergic/Immunologic : Negative. Neurological: Negative. Hematological: Negative. Psychiatric/Behavior al: Negative. All other systems reviewed and are negative. OBJECTIVE: BP 114/76 Pulse 92 Temp 37 ?C (98.6 ?F) Wt 51 kg (112 lb 7 oz) SpO2 100% BMI 19.30 kg/m? . Vital signs reviewed by this provider. Physical Exam Vitals reviewed. Constitutional: General: She is not in acute distress. Appearance: Normal appearance. She is well-developed and normal weight. She is not ill-appearing, toxic-appearing or diaphoretic. HENT: Head: Normocephalic and atraumatic. No right periorbital erythema or left periorbital erythema. Salivary Glands: Right salivary gland is not diffusely enlarged or tender. Left salivary gland is not diffusely enlarged or tender. Right Ear: Tympanic membrane, ear canal and exte (more content not included)... Normal [facility] COVID AND INFLUENZA A/B AND RSV PCR, ROUTINEon 10-30-2024 SARS-CoV-2 (COVID-19) RNA NARESH+probe Ql (Unsp spec) SARS-COV-2 (AGENT OF COVID-19) RNA: Not detected INFLUENZA A RNA: Not detected INFLUENZA B RNA: Not detected RESPIRATORY SYNCYTIAL VIRUS (RSV) RNA: Not detected Normal [facility] Comment on above: Performed By: #### C VFLRS #### [facility] CLIA [id number] [address] [place] [address] [place] STREP A MOLECULAR (POC)on Procedural Control Valid [facility] Strep A (POCT) Negative Negative [facility] Urine Cultureon 06-07-2024 [facility] Culture exhibits no growth. Normal [facility] Comment on above: Performed By: #### M 100.0309 #### [facility] [address] [place], [place], [id number] Absolute lymphocyte countOrd ered By: Madonna Kline on 01-16-2024 Lymphocytes Auto (Unsp spec) [#/Vol] 3.89 10*3/uL 0.83-4.51 [facility] Automated lymphocyte count a s percentage of total leukocytesOrdered By: Madonna Kline on 01-16-2024 Lymphocytes/100 WBC Auto (Unsp spec) 41.8 % 19-41 [facility] Basophil percentageOrdered B y: Madonna Kline on 01-16-2024 Basophils/100 WBC (Bld) 0.9 % 0-1 [facility] Bilirubin [Mass/Vol] 0.20 mg/dL 0.20-1.00 [facility] Comment on above: For patients on eltr ombopag therapy, use of Dimension [place] TBIL is not recommended. Chloride [Moles/Vol] 106 mmol/L 98-107 [facility] Eosinophils/100 WBC (Bld) 2.8 % 0-5 [facility] Glucose [Mass/Vol] 141 mg/dL 74-106 [facility] Comment on above: Fasting Glucose resu lt greater than or equal to 126 mg/dL suggests DIABETES MELLITUS per A.D.A. criteria. Hemoglobin (Bld) [Mass/Vol] 13.6 g/dL 12.0-15.0 [facility] Monocytes/100 WBC (Bld) 9.2 % 0-10 [facility] Neutrophils (Bld) [#/Vol] 4.2 10*3/uL 2.0-7.7 [facility] Neutrophils/100 WBC (Bld) 45.2 % 47-70 [facility] Potassium [Moles/Vol] 4.4 mmol/L 3.5-5.[address] [facility] Protein [Mass/Vol] 7.4 g/dL 6.4-8.2 [facility] Sodium [Moles/Vol] 140 mmol/L 136-145 [facility] WBC (Bld) [#/Vol] 9.3 10*3/uL 4.4-11.0 [facility] CBC W/Diff, Automatedon 12-21 Absolute Lymph 3.89 X10 3/uL Normal 0.83-4.51 [facility] Comment on above: Performed By: #### L 100.0100, L500.4050 #### [facility] [employer] [place], [address] Absolute Neut 4.2 X10 3/uL Normal 2.0-7.7 [facility] Comment on above: Performed By: #### L 100.0100, L500.4050 #### [facility] [address] [place], [address] Basophils/100 WBC (Bld) 0.9 % Normal 0-1 [facility] Comment on above: Performed By: #### L 100.0100, L500.4050 #### [facility] [address] [place], [address] Eosinophils/100 WBC (Bld) 2.8 % Normal 0-5 [facility] Comment on above: Performed By: #### L 100.0100, L500.4050 #### [facility] [address] [place], [address] Erythrocyte distribution width (RBC) [Ratio] 12.2 % Normal 11.6-14.6 [facility] Comment on above: Performed By: #### L 100.0100, L500.4050 #### [facility] [address] [place], [address] Hematocrit (Bld) [Volume fraction] 42.3 % Normal 37-47 [facility] Comment on above: Performed By: #### L 100.0100, L500.4050 #### [facility] [address] [place], [address] Hemoglobin (Bld) [Mass/Vol] 13.6 g/dL Normal 12.0-15.0 [facility] Comment on above: Performed By: #### L 100.0100, L500.4050 #### [facility] [address] [place], [address] IG% 0.100 Normal 0.0-0.9 [facility] Comment on above: Result Comment: IG% - Immature Granulocytes (promyelocytes, myelocytes and metamyelocytes) > 1% indicates that a LEFT SHIFT is Present. Performed By: #### L 100.0100, L500.4050 #### [facility] [address] [place], [address] Lymphocytes/100 WBC (Bld) 41.8 % High 19-41 [facility] Comment on above: Performed By: #### L 100.0100, L500.4050 #### [facility] [address] [place], [address] MCH (RBC) [Entitic mass] 28.6 pg Normal 27.0-32.0 [facility] Comment on above: Performed By: #### L 100.0100, L500.4050 #### [facility] [address] [place], [address] MCHC (RBC) [Mass/Vol] 32.2 g/dL Normal 32-[address] [facility] Comment on above: Performed By: #### L 100.0100, L500.4050 #### [facility] [address] [place], [address] MCV (RBC) [Entitic vol] 89.1 fL Normal 81-99 [facility] Comment on above: Performed By: #### L 100.0100, L500.4050 #### [facility] [address] [place], [address] Monocytes/100 WBC (Bld) 9.2 % Normal 0-10 [facility] Comment on above: Performed By: #### L 100.0100, L500.4050 #### [facility] [address] [place], [address] Neutrophils/100 WBC (Bld) 45.2 % Low 47-70 [facility] Comment on above: Performed By: #### L 100.0100, L500.4050 #### [facility] [address] [place], [address] Nucleated RBC (Bld) [#/Vol] 0 10*3/uL Normal 0-5 [facility] Comment on above: Performed By: #### L 100.0100, L500.4050 #### [facility] [address] [place], [address] Platelet mean volume (Bld) [Entitic vol] 10.1 fL Normal 6.2-12.0 [facility] Comment on above: Performed By: #### L 100.0100, L500.4050 #### [facility] [address] [place], [address] Platelets (Bld) [#/Vol] 351 10*3/uL Normal 150-450 [facility] Comment on above: Performed By: #### L 100.0100, L500.4050 #### [facility] [address] [place], [address] RBC (Bld) [#/Vol] 4.75 10*6/uL Normal 4.2-5.4 [facility] Comment on above: Performed By: #### L 100.0100, L500.4050 #### [facility] [address] [place], [address] RDW SD 39.9 fl Normal 35.1-43.9 [facility] Comment on above: Performed By: #### L 100.0100, L500.4050 #### [facility] [address] [place], [address] WBC (Bld) [#/Vol] 9.3 10*3/uL Normal 4.4-11.0 [facility] Comment on above: Performed By: #### L 100.0100, L500.4050 #### [facility] [address] [place], [address] Comprehensive Metabolic Prof [facility] 01-16-2024 Albumin [Mass/Vol] 3.8 g/dL Normal 3.2-5.0 [facility] Comment on above: Performed By: #### L 100.0100, L500.4050 #### [facility] [address] [place], [address] Albumin/Globulin [Mass ratio] 1.1 {ratio} Normal 0.9-2.4 [facility] Comment on above: Performed By: #### L 100.0100, L500.4050 #### [facility] [address] [place], [address] ALK P 91 U/L Normal 45-117 [facility] Comment on above: Performed By: #### L 100.0100, L500.4050 #### [facility] [address] [place], [address] ALT [Catalytic activity/Vol] 26 U/L Normal 13-56 [facility] Comment on above: Performed By: #### L 100.0100, L500.4050 #### [facility] [address] [place], [address] AST [Catalytic activity/Vol] 9 U/L Low 15-37 [facility] Comment on above: Performed By: #### L 100.0100, L500.4050 #### [facility] [address] [place], [address] Bilirubin [Mass/Vol] 0.20 mg/dL Normal 0.20-1.00 [facility] Comment on above: Result Comment: For patients on eltrombopag therapy, use of Dimension [place] TBIL is not recommended. Performed By: #### L 100.0100, L500.4050 #### [facility] [address] [place], [address] BUN/CRE 14.4 RATIO Normal 10-20 [facility] Comment on above: Performed By: #### L 100.0100, L500.4050 #### [facility] [address] [place], [address] CA,Total 9.4 mg/dL Normal 8.5-10.1 [facility] Comment on above: Performed By: #### L 100.0100, L500.4050 #### [facility] [address] [place], [address] Chloride [Moles/Vol] 106 mmol/L Normal 98-107 [facility] Comment on above: Performed By: #### L 100.0100, L500.4050 #### [facility] [address] [place], [address] CO2 [Moles/Vol] 31.0 mmol/L Normal 21.0-32.0 [facility] Comment on above: Performed By: #### L 100.0100, L500.4050 #### [facility] [address] [place], [address] Creatinine [Mass/Vol] 0.84 mg/dL Normal 0.55-1.[address] [facility] Comment on above: Result Comment: The validity of the calculated GFR GFRAA in patients over 70 years has not been determined. Clinical correlation is essential. Performed By: #### L 100.0100, L500.4050 #### [facility] [address] [place], [address] EST GFR - AA 88 mL/min Normal >60 [facility] Comment on above: Result Comment: Afri can [place]an GFR Calc Performed By: #### L 100.0100, L500.4050 #### [facility] [address] [place], [address] GAP 3 Low 5-15 [facility] Comment on above: Performed By: #### L 100.0100, L500.4050 #### [facility] [address] [place], [address] GFR/1.73 sq M.predicted among non-blacks MDRD (S/P/Bld) [Vol rate/Area] 73 mL/min/{1.73_m2} Normal >60 [facility] Comment on above: Result Comment: Non- GFR Calc Performed By: #### L 100.0100, L500.4050 #### [facility] [address] [place], [address] Globulin (S) [Mass/Vol] 3.6 g/dL Normal 2.2-4.2 [facility] Comment on above: Performed By: #### L 100.0100, L500.4050 #### [facility] [address] [place], [address] Glucose [Mass/Vol] 141 mg/dL High 74-106 [facility] Comment on above: Result Comment: Fast ing Glucose result greater than or equal to 126 mg/dL suggests DIABETES MELLITUS per A.D.A. criteria. Performed By: #### L 100.0100, L500.4050 #### [facility] [address] [place], [address] Potassium [Moles/Vol] 4.4 mmol/L Normal 3.5-5.[address] [facility] Comment on above: Performed By: #### L 100.0100, L500.4050 #### [facility] [address] [place], [address] Sodium [Moles/Vol] 140 mmol/L Normal 136-145 [facility] Comment on above: Performed By: #### L 100.0100, L500.4050 #### [facility] [address] [place], [address] T PROT 7.4 g/dL Normal 6.4-8.2 [facility] Comment on above: Performed By: #### L 100.0100, L500.4050 #### [facility] [address] [place], [place], [address] Urea nitrogen [Mass/Vol] 12 mg/dL Normal 7-18 [facility] Comment on above: Performed By: #### L 100.0100, L500.4050 #### [facility] [address] [place], [place], [address] Determination of erythrocyte mean corpuscular volume (MCV)Ordered By: Madonna Kline on 01-16-2024 MCV (RBC) [Entitic vol] 89.1 fL 81-99 [facility] Erythrocyte distribution wid th ratioOrdered By: Madonna Kline on 01-16-2024 Erythrocyte distribution width (RBC) [Ratio] 12.2 % 11.6-14.6 [facility] Erythrocyte distribution wid th standard deviationOrdered By: Madonna Kline on 01-16-2024 Erythrocyte distribution width (RBC) [Entitic vol] 39.9 fL 35.1-43.9 [facility] Hematocrit Auto (Bld) [Volum e fraction]Ordered By: Madonna Kline on 01-16-2024 Hematocrit (Bld) [Volume fraction] 42.3 % 37-[address] [facility] [facility] Immature granulocytes/100 WB C Auto (Bld)Ordered By: Madonna Kline on 01-16-2024 Immature granulocytes/100 WBC (Bld) 0.100 % 0.0-0.9 [facility] Comment on above: IG% - Immature Granu locytes (promyelocytes, myelocytes and metamyelocytes) > 1% indicates that a LEFT SHIFT is Present. Laboratory - Chemistry and C hemistry - challengeOrdered By: Madonna Kline on 01-16-2024 Albumin/Globulin [Mass ratio] 1.1 {ratio} 0.9-2.4 [facility] ALP [Catalytic activity/Vol] 91 U/L 45-117 [facility] ALT [Catalytic activity/Vol] 26 U/L 13-56 [facility] CO2 [Moles/Vol] 31.0 mmol/L 21.0-32.0 [facility] Globulin (S) [Mass/Vol] 3.6 g/dL 2.2-4.2 [facility] Urea nitrogen/Creatinine [Mass ratio] 14.4 mg/mg 10-20 [facility] Laboratory - Hematology and Cell countsOrdered By: Madonna Kline on 01-16-2024 MCH (RBC) [Entitic mass] 28.6 pg 27.0-32.0 [facility] MCHC (RBC) [Mass/Vol] 32.2 g/dL 32-[address] [facility] Nucleated RBC/100 WBC (Bld) [Ratio] 0 % 0-5 [facility] Platelet mean volume (Bld) [Entitic vol] 10.1 fL 6.2-12.0 [facility] Platelets (Bld) [#/Vol] 351 10*3/uL 150-450 [facility] Laboratory - Hematology and Cell countson 01-16-2024 HbA1c (Bld) [Mass fraction] 7.9 % 4.2-6.3 [facility] No Panel InformationOrdered By: Madonna Kline on 01-16-2024 Estimated GFR (MDRD) Amer 88 mL/min >60 [facility] Comment on above: GFR Calc Estimated GFR (MDRD) Non-Af Amer 73 mL/min >60 [facility] Comment on above: Non- GFR Calc RBC Auto (Bld) [#/Vol]Ordere d By: Madonna Kline on 01-16-2024 RBC (Bld) [#/Vol] 4.75 10*6/uL 4.2-5.4 [facility] Serum or plasma calcium milton urement (mass/volume)Ordered By: Madonna Kline on 01-16-2024 Calcium [Mass/Vol] 9.4 mg/dL 8.5-10.1 [facility] Serum or plasma creatinine m easurement (mass/volume)Ordered By: Madnona Kline on 01-16-2024 Creatinine [Mass/Vol] 0.84 mg/dL 0.55-1.[address] [facility] Comment on above: The validity of the calculated GFR & GFRAA in patients over 70 years has not been determined. Clinical correlation is essential. Serum or plasma urea nitroge n measurement (mass/volume)Ordered By: Madonna Kline on 01-16-2024 Urea nitrogen [Mass/Vol] 12 mg/dL 7-18 [facility] Thin prep Papanicolaou smear with manual screeningOrdered By: Madonna Kline on 01-16-2024 Thin prep Papanicolaou smear with manual screening 3.8 g/dL 3.2-5.0 [facility] Thin prep Papanicolaou smear with manual screening 9 U/L 15-37 [facility] Thin prep Papanicolaou smear with manual screening 3 5-15 [facility] Absolute lymphocyte counton 05-03-2022 Lymphocytes Auto (Unsp spec) [#/Vol] 4.02 10*3/uL 0.83-4.51 [facility] Work Phone: Basophil percentageon 2021 Basophils/100 WBC (Bld) 0.7 % 0-1 [facility] Work Phone: Bilirubin [Mass/Vol] 0.20 mg/dL 0.20-1.00 [facility] Work Phone: Comment on above: For patients on eltr ombopag therapy, use of Dimension [place] TBIL is not recommended. Chloride [Moles/Vol] 106 mmol/L 98-107 [facility] Work Phone: Cholesterol [Mass/Vol] 149 mg/dL <200 [facility] Work Phone: Comment on above: <200 mg/dL Desirable 200-240 mg/dL Borderline >240 mg/dL High Risk Eosinophils/100 WBC (Bld) 3.1 % 0-5 [facility] Work Phone: Glucose [Mass/Vol] 173 mg/dL 74-106 [facility] Work Phone: Comment on above: Fasting Glucose resu lt greater than or equal to 126 mg/dL suggests DIABETES MELLITUS per A.D.A. criteria. Neutrophils (Bld) [#/Vol] 5.6 10*3/uL 2.0-7.7 [facility] Work Phone: Neutrophils/100 WBC (Bld) 49.7 % 47-70 [facility] Work Phone: Potassium [Moles/Vol] 4.1 mmol/L 3.5-5.1 [facility]: Protein [Mass/Vol] 6.9 g/dL 6.4-8.2 [facility] Work Phone: Sodium [Moles/Vol] 138 mmol/L 136-145 [facility] Work Phone: Triglyceride [Mass/Vol] 84 mg/dL <199 [facility] Work Phone: Comment on above: The drugs N-Acetylcy steine and Metamizole may falsely depress this assay.Serum Triglycerides Reference Interval Normal <150 mg/dL Borderline high 150 - 199 mg/dL High 200 - 499 mg/dL Very High > or = 500 mg/dL WBC (Bld) [#/Vol] 11.1 10*3/uL 4.4-11.0 [facility] Work Phone: Blood erythrocytes count (nu mber/volume)on 05-03-2022 RBC (Bld) [#/Vol] 4.27 10*6/uL 4.2-5.4 [facility] Work Phone: Blood hemoglobin measurement (mass/volume)on 05-03-2022 Hemoglobin (Bld) [Mass/Vol] 12.7 g/dL 12.0-15.0 [facility] Work Phone: Blood lymphocytes/100 leukoc yteson 05-03-2022 Lymphocytes/100 WBC (Bld) 36.1 % 19-41 [facility] Work Phone: Blood monocytes/100 leukocyt eson 05-03-2022 Monocytes/100 WBC (Bld) 10.1 % 0-10 [facility] Work Phone: Blood platelet mean volumeon 05-03-2022 Platelet mean volume (Bld) [Entitic vol] 9.8 fL 6.2-12.0 [facility] Work Phone: Determination of erythrocyte mean corpuscular volume (MCV)on 06-15-2022 MCV (RBC) [Entitic vol] 89.2 fL 81-99 [facility] Work Phone: Hematocrit Auto (Bld) [Volum e fraction]on 05-03-2022 Hematocrit (Bld) [Volume fraction] 38.1 % 37-47 [facility] Work Phone: Laboratory - Chemistry and C hemistry - challengeon 05-03-2022 ALP [Catalytic activity/Vol] 78 U/L 45-117 [facility] Work Phone: ALT [Catalytic activity/Vol] 19 U/L 13-56 [facility] Work Phone: [phone] CO2 [Moles/Vol] 26.0 mmol/L 21.0-32.0 [facility] Work Phone: [phone] Globulin (S) [Mass/Vol] 3.2 g/dL 2.2-4.2 [facility] Work Phone: Urea nitrogen/Creatinine [Mass ratio] 19.2 mg/mg 10-20 [facility] Work Phone: Laboratory - Hematology and Cell countson 05-03-2022 Erythrocyte distribution width (RBC) [Entitic vol] 40.6 fL 35.1-43.9 [facility] Work Phone: Erythrocyte distribution width (RBC) [Ratio] 12.4 % 11.6-14.6 [facility] Work Phone: Immature granulocytes/100 WBC (Bld) 0.300 % 0.0-0.9 [facility] Work Phone: Comment on above: IG% - Immature Granu locytes (promyelocytes, myelocytes and metamyelocytes) > 1% indicates that a LEFT SHIFT is Present. MCH (RBC) [Entitic mass] 29.7 pg 27.0-32.0 [facility] Work Phone: [phone] Nucleated RBC/100 WBC (Bld) [Ratio] 0 % 0-5 [facility] Work Phone: MCHC Auto (RBC) [Mass/Vol]on 05-03-2022 MCHC (RBC) [Mass/Vol] 33.3 g/dL 32-[address] [facility] Work Phone: No Panel Informationon 05-03 Estimated GFR (MDRD) Amer 89 mL/min >60 [facility] Work Phone: Comment on above: GFR Calc Estimated GFR (MDRD) Non-Af Amer 73 mL/min >60 [facility] Work Phone: Comment on above: Non- GFR Calc Platelets bldon 05-03-2022 Platelets (Bld) [#/Vol] 352 10*3/uL 150-450 [facility] Work Phone: Serum or plasma albumin milton urement (mass/volume)on 05-03-2022 Albumin [Mass/Vol] 3.7 g/dL 3.2-5.0 [facility] Work Phone: Serum or plasma albumin/glob ulin mass ratioon 05-03-2022 Albumin/Globulin [Mass ratio] 1.2 {ratio} 0.9-2.4 [facility] Work Phone: Serum or plasma calcium milton urement (mass/volume)on 05-03-2022 Calcium [Mass/Vol] 9.1 mg/dL 8.5-10.1 [facility] Work Phone: Serum or plasma cholesterol in HDL measurement (mass/volume)on 05-03-2022 Cholesterol in HDL [Mass/Vol] 62 mg/dL >40 [facility] Work Phone: Comment on above: The drugs N-Acetylcy steine and Metamizole may falsely depress this assay. Reference Range HDL <40 mg/dL Low HDL Cholesterol HDL >or= 60 mg/dL High HDL Cholesterol Serum or plasma cholesterol in VLDL measurement (mass/volume)on 05-03-2022 Cholesterol in VLDL [Mass/Vol] 17 mg/dL 5-40 [facility] Work Phone: Serum or plasma creatinine m easurement (mass/volume)on 05-03-2022 Creatinine [Mass/Vol] 0.84 mg/dL 0.55-1.[address] [facility] Work Phone: Comment on above: The validity of the calculated GFR & GFRAA in patients over 70 years has not been determined. Clinical correlation is essential. Serum or plasma low density lipoprotein (LDL) cholesterol measurement (mass/volume)on 05-03-2022 Cholesterol in LDL [Mass/Vol] 70 mg/dL 0-130 [facility] Work Phone: Serum or plasma urea nitroge n measurement (mass/volume)on 05-03-2022 Urea nitrogen [Mass/Vol] 16 mg/dL 7-18 [facility] Work Phone: Thin prep Papanicolaou smear with manual screeningon 05-03-2022 Thin prep Papanicolaou smear with manual screening 10 U/L 15- [facility] Work Phone: Thin prep Papanicolaou smear with manual screening 6 04-02 [facility] Work Phone: Whole blood hemoglobin A1c/t otal hemoglobin ratio (mass fraction)on 05-03-2022 HbA1c (Bld) [Mass fraction] 7.0 % 3.8-5.6 [facility] Work Phone: Comment on above: Normal < 5.7 % Predi abetic 5.7 - 6.4 % Diabetic >or= 6.5 % Please note range changes. Comprehensive Panelon 2018 Creatinine [Mass/Vol] 0.75 mg/dL Normal 0.51-0.95 [facility] Comment on above: Performed By: #### P 14 #### [facility] [address] [place], [place] [address] Bilirubin [Mass/Vol] 0.3 mg/dL Normal 0.2-1.0 [facility] Comment on above: Performed By: #### P 14 #### [facility] [address] [place], [place] [address] ALP [Catalytic activity/Vol] 96 U/L Normal 45-117 [facility] Comment on above: Performed By: #### P 14 #### [facility] [address] [place], [place] [address] Protein [Mass/Vol] 7.5 g/dL Normal 6.4-8.2 [facility] Comment on above: Performed By: #### P 14 #### [facility] [address] [place], [place] [address] ALT [Catalytic activity/Vol] 30 U/L Normal 12-78 [facility] Comment on above: Performed By: #### P 14 #### [facility] [address] [place], [place] [address] AST [Catalytic activity/Vol] 12 U/L Low 15-37 [facility] Comment on above: Performed By: #### P 14 #### [facility] [address] [place], [place] [address] Glucose [Mass/Vol] 189 mg/dL High 70-99 [facility] Comment on above: Performed By: #### P 14 #### [facility] [address] [place], [place] [address] Albumin [Mass/Vol] 4.0 g/dL Normal 3.4-5.0 [facility] Comment on above: Performed By: #### P 14 #### [facility] [address] [place], [place] [address] Anion gap [Moles/Vol] 8 mmol/L Normal 8-16 [facility] Comment on above: Performed By: #### P 14 #### [facility] [address] [place], [place] [address] Calcium [Mass/Vol] 9.3 mg/dL Normal 8.5-10.1 [facility] Comment on above: Performed By: #### P 14 #### [facility] [address] [place], [place] [address] CO2 [Moles/Vol] 31 mmol/L Normal 21-32 [facility] Comment on above: Performed By: #### P 14 #### [facility] [address] [place], [place] [address] Urea nitrogen [Mass/Vol] 14 mg/dL Normal 7-18 [facility] Comment on above: Performed By: #### P 14 #### [facility] [address] [place], [place] [address] Chloride [Moles/Vol] 105 mmol/L Normal 98-107 [facility] Comment on above: Performed By: #### P 14 #### [facility] [address] [place], [place] [address] Potassium [Moles/Vol] 4.7 mmol/L Normal 3.5-5.1 [facility] Comment on above: Performed By: #### P 14 #### [facility] [address] [place], [place] [address] Sodium [Moles/Vol] 139 mmol/L Normal 136-145 [facility] Comment on above: Performed By: #### P 14 #### [facility] [address] [place], [place] [address] Hemogramon 07-02-2019 Erythrocyte distribution width (RBC) [Ratio] 12.7 % Normal 11.5-15.9 [facility] Comment on above: Performed By: #### L CBC #### [facility] [address] [place] [address] Hematocrit (Bld) [Volume fraction] 42.5 % Normal 37.0-47.0 [facility] Comment on above: Performed By: #### L CBC #### [facility] [address] [place], [place] [address] Hemoglobin (Bld) [Mass/Vol] 14.1 g/dL Normal 12.0-16.0 [facility] Comment on above: Performed By: #### L CBC #### [facility] [address] [place], [place] [address] MCH (RBC) [Entitic mass] 29.6 pg Normal 27.0-31.0 [facility] Comment on above: Performed By: #### L CBC #### [facility] [address] [place], [place] [address] MCHC (RBC) [Mass/Vol] 33.2 % Normal 32.0-36.0 [facility] Comment on above: Performed By: #### L CBC #### [place] [address] MCV (RBC) [Entitic vol] 89.3 fL Normal 81.0-99.0 [facility] Comment on above: Performed By: #### L CBC #### [facility] [address] [place], [place] [address] Platelet mean volume (Bld) [Entitic vol] 9.3 fL Normal 7.1-10.5 [facility] Comment on above: Performed By: #### L CBC #### [facility] [address] [place], [place] [address] Platelets (Bld) [#/Vol] 369 thou/cmm Normal 150-400 [facility] Comment on above: Performed By: #### L CBC #### [facility] [address] [place], [place] [address] RBC (Bld) [#/Vol] 4.76 mil/cmm Normal 4.20-5.40 [facility] Comment on above: Performed By: #### L CBC #### [place] [id number] WBC (Bld) [#/Vol] 11.0 thou/cmm High 4.8-10.5 [facility] Comment on above: Performed By: #### L CBC #### [address] [address] Lipid Profileon 07-02-2019 Cholesterol [Mass/Vol] 189 mg/dL Normal 0-199 [facility] Comment on above: Performed By: #### L LIPD #### [address] [address] Cholesterol in HDL [Mass/Vol] 60 mg/dL Normal >40 [facility] Comment on above: Performed By: #### L LIPD #### [facility] [address] [place], [place] [address] Cholesterol in LDL [Mass/Vol] 102 mg/dL Normal 0-150 [facility] Comment on above: Performed By: #### L LIPD #### [facility] [address] [place], [place] [address] Cholesterol.total/Minna sterol in HDL [Mass ratio] 3.2 {ratio} Normal 1.8-5.3 [facility] Comment on above: Performed By: #### L LIPD #### [facility] [address] [place] [address] Triglyceride Blood 134 mg/dL Normal 0-149 [facility] Comment on above: Performed By: #### L LIPD #### [place] [address] Risk Factor See Below Normal [facility] Comment on above: Result Comment: Card iac Risk Factor The CHD risk factor is based on the total Chol/HDL ratio. Other factors affect CHD risk such as hypertension, smoking, diabetes, severe obesity and premature CHD. Cardiac Risk Total Chol/HDL ratio Men Women 1/2 avg risk 3.4-4.9 3.3-6.3 Avg risk 5.0-9.5 6.4-7.0 2x avg risk 9.6-23.3 7.1-10.9 3x avg risk >23.4 >11.0 Performed By: #### L LIPD #### [place] [address] MDRD GFRon 07-02-2019 GFR/1.73 sq M predicted among non-blacks MDRD (S/P/Bld) [Vol rate/Area] mL/min/{1.73_m2} Normal >60mL/min/1.73 m2 [facility] Comment on above: Result Comment: If t he patient is , multiply the result by 1.210. Performed By: #### G FR #### [place] [address] Microalb/Creat, Randomon MA/Creat Ratio 12.65 mg/g Normal 0.10-30.00 [facility] Comment on above: Performed By: #### M ALBR #### [facility] [address] [place] [address] Microalbumin,Random 1.24 mg/dL Normal 0.20-2.50 [facility] Comment on above: Performed By: #### M ALBR #### [facility] [address] [place] [address] Creatinine,Urine 98.0 mg/dL Normal [facility] Comment on above: Performed By: #### M ALBR #### [facility] [address] [place] [address] Comprehensive Panelon 2017 Albumin [Mass/Vol] 3.8 g/dL Normal 3.4-5.0 [facility] Comment on above: Performed By: #### L P14 #### [facility] [address] [place] [address] ALP [Catalytic activity/Vol] 101 U/L Normal 46-116 [facility] Comment on above: Performed By: #### L P14 #### [facility] [address] [place] [address] ALT-SGPT Blood 24 U/L Normal 14-63 [facility] Comment on above: Performed By: #### L P14 #### [facility] [address] [place] [address] Anion gap [Moles/Vol] 5 mmol/L Low 8-20 [facility] Comment on above: Performed By: #### L P14 #### [place] [address] AST-SGOT Blood 15 U/L Normal 15-37 [facility] Comment on above: Performed By: #### L P14 #### [facility] [address] [place] [address] Bilirubin Ql (U) 0.3 mg/dL Normal 0.2-1.0 [facility] Comment on above: Performed By: #### L P14 #### [facility] [address] [place] [address] Calcium [Mass/Vol] 9.2 mg/dL Normal 8.5-10.1 [facility] Comment on above: Performed By: #### L P14 #### [facility] [address] [place], [place] [address] Chloride [Moles/Vol] 102 mmol/L Normal 98-107 [facility] Comment on above: Performed By: #### L P14 #### [facility] [address] [place], [place] [address] CO2 Blood 29 mEq/L Normal 21-32 [facility] Comment on above: Performed By: #### L P14 #### [facility] [address] [place], [place] [address] Creatinine [Mass/Vol] 0.68 mg/dL Normal 0.51-0.95 [facility] Comment on above: Performed By: #### L P14 #### [address] [address] Glucose [Mass/Vol] 230 mg/dL High 70-99 [facility] Comment on above: Performed By: #### L P14 #### [address] [address] Potassium [Moles/Vol] 3.9 mmol/L Normal 3.5-5.1 [facility] Comment on above: Performed By: #### L P14 #### [address] [address] Protein [Mass/Vol] 7.7 g/dL Normal 6.4-8.2 [facility] Comment on above: Performed By: #### L P14 #### [address] [address] Sodium [Moles/Vol] 132 mmol/L Low 136-145 [facility] Comment on above: Performed By: #### L P14 #### [address] [address] Urea nitrogen [Mass/Vol] 13 mg/dL Normal 7-25 [facility] Comment on above: Performed By: #### L P14 #### [address] [address] Urea nitrogen/Creatinine [Mass ratio] 19 mg/mg Normal 10-20 [facility] Comment on above: Performed By: #### L P14 #### [address] [place] [address] Hemogramon 08-01-2018 Erythrocyte distribution width (RBC) [Ratio] 12.6 % Normal 11.5-15.9 [facility] Comment on above: Performed By: #### L CBC #### [facility] [address] [place], [place] [address] Hematocrit (Bld) [Volume fraction] 41.1 % Normal 37.0-47.0 [facility] Comment on above: Performed By: #### L CBC #### [facility] [address] [place] [address] Hemoglobin (Bld) [Mass/Vol] 13.6 g/dL Normal 12.0-16.0 [facility] Comment on above: Performed By: #### L CBC #### [place] [address] MCH (RBC) [Entitic mass] 29.5 pg Normal 27.0-31.0 [facility] Comment on above: Performed By: #### L CBC #### [place] [address] MCHC (RBC) [Mass/Vol] 33.1 % Normal 32.0-36.0 [facility] Comment on above: Performed By: #### L CBC #### [place] [address] MCV (RBC) [Entitic vol] 89.2 fL Normal 81.0-99.0 [facility] Comment on above: Performed By: #### L CBC #### [facility] [address] [place], [place] [address] Platelet mean volume (Bld) [Entitic vol] 9.7 fL Normal 7.1-10.5 [facility] Comment on above: Performed By: #### L CBC #### [address] [address] Platelets (Bld) [#/Vol] 370 thou/cmm Normal 150-400 [facility] Comment on above: Performed By: #### L CBC #### [place] [address] RBC (Bld) [#/Vol] 4.61 mil/cmm Normal 4.20-5.40 [facility] Comment on above: Performed By: #### L CBC #### [facility] [address] [place], [place] [address] WBC (Bld) [#/Vol] 9.9 thou/cmm Normal 4.8-10.8 [facility] Comment on above: Performed By: #### L CBC #### [facility] [address] [place], [place] [address] Lipid Profileon 08-01-2018 Cholesterol [Mass/Vol] 165 mg/dL Normal 0-199 [facility] Comment on above: Performed By: #### L LIPD #### [address] [address] Cholesterol in HDL [Mass/Vol] 60 mg/dL Normal >40 [facility] Comment on above: Performed By: #### L LIPD #### [address] [address] Cholesterol in LDL [Mass/Vol] 92 mg/dL Normal 0-150 [facility] Comment on above: Performed By: #### L LIPD #### [address] [address] Cholesterol.total/Minna sterol in HDL [Mass ratio] 2.8 {ratio} Normal 1.8-5.3 [facility] Comment on above: Performed By: #### L LIPD #### [address] [address] Risk Factor 2.8 Normal [facility] Comment on above: Result Comment: Card iac Risk Factor The CHD risk factor is based on the total Chol/HDL ratio. Other factors affect CHD risk such as hypertension, smoking, diabetes, severe obesity and premature CHD. Cardiac Risk Total Chol/HDL ratio Men Women 1/2 avg risk 3.4-4.9 3.3-6.3 Avg risk 5.0-9.5 6.4-7.0 2x avg risk 9.6-23.3 7.1-10.9 3x avg risk >23.4 >11.0 Performed By: #### L LIPD #### [facility] [address] [place], [place] [address] Triglyceride Blood 67 mg/dL Normal 0-149 [facility] Comment on above: Performed By: #### L LIPD #### [facility] [address] [place], [place] [address] MDRD eGFRon 08-01-2018 GFR/1.73 sq M predicted among non-blacks MDRD (S/P/Bld) [Vol rate/Area] mL/min/{1.73_m2} Normal >60mL/min/1.73 m2 [facility] Comment on above: Result Comment: If t he patient is , multiply the result by 1.210. Performed By: #### L GFR #### [address] [address] Microalb/Creat, Randomon MA/Creat Ratio 6.18 mg/g Normal 0.10-30.00 [facility] Comment on above: Performed By: #### M ALBR #### [address] [address] Microalbumin,Random 0.68 mg/dL Normal 0.20-2.50 [facility] Comment on above: Performed By: #### M ALBR #### [address] [address] Creatinine,Urine 110.0 mg/dL Normal [facility] Comment on above: Performed By: #### M ALBR #### [address] [address] Vital Signs Date Time Vital Sign Value Performing Clinician Shine painter 05-07-2025 15:45-0400 Body height 157.48 cm Madonna DOOLEY Work Phone: [facility] 05-07-2025 15:45-0400 Body mass index (BMI) [Ratio] 19 kg/m2 Madonna Kline CANAL SUPERINTENDENT-C Work Phone: [facility] 05-07-2025 15:45-0400 Body temperature 97.7 [degF] Madonna Kline CANAL SUPERINTENDENT-C Work Phone: [facility] 05-07-2025 15:45-0400 Body weight 47.17 kg Madonna Kline CANAL SUPERINTENDENT-C Work Phone: [facility] 05-07-2025 15:45-0400 Diastolic blood pressure 60 mm[Hg] Madonna Kline CANAL SUPERINTENDENT-C Work Phone: [facility] 05-07-2025 15:45-0400 Heart rate 84 /min Madonna Kline CANAL SUPERINTENDENT-C Work Phone: [facility] 05-07-2025 15:45-0400 Respiratory rate 18 /min Madonnaming Kline CANAL SUPERINTENDENT-C Work Phone: [facility] 05-07-2025 15:45-0400 SaO2% (BldA) [Mass fraction] 99 % Madonnaming Kline CANAL SUPERINTENDENT-C Work Phone: [facility] 05-07-2025 15:45-0400 Systolic blood pressure 100 mm[Hg] Madonna Kline CANAL SUPERINTENDENT-C Work Phone: [facility] 03-01-2025 09:08-0400 Body mass index (BMI) [Ratio] 18.43 kg/m2 Mayte Clutter PA-C Work Phone: [facility] 03-01-2025 09:08-0400 Body temperature 98.8 [degF] Mayte Clutter PA-C Work Phone: [facility] 03-01-2025 09:08-0400 Body weight 48.7 kg Mayte Clutter PA-C Work Phone: [facility] 03-01-2025 09:08-0400 Diastolic blood pressure 57 mm[Hg] Mayte Clutter PA-C Work Phone: [facility] 03-01-2025 09:08-0400 Heart rate 92 /min Mayte Clutter PA-C Work Phone: [facility] 03-01-2025 09:08-0400 Respiratory rate 16 /min Mayte Clutter PA-C Work Phone: [facility] [facility]25 09:08-0400 SaO2% (BldA) [Mass fraction] 96 % Mayte Clutter PA-C Work Phone: [facility] 03-01-2025 09:08-0400 Systolic blood pressure 94 mm[Hg] Mayte Clutter PA-C Work Phone: [facility] 10-30-2024 09:47-0500 Body mass index (BMI) [Ratio] 19.3 kg/m2 Isaias Slabaugh PA-C Work Phone: [facility] 10-30-2024 09:47-0500 Body temperature 98.6 [degF] Isaias Slabaugh PA-C Work Phone: [facility] 10-30-2024 09:47-0500 Body weight 51 kg Isaias Slabaugh PA-C Work Phone: [facility] 10-30-2024 09:47-0500 Diastolic blood pressure 76 mm[Hg] Isaias Slabaugh PA-C Work Phone: [facility] 10-30-2024 09:47-0500 Heart rate 92 /min Isaias Slabaugh PA-C Work Phone: [facility] 10-30-2024 09:47-0500 SaO2% (BldA) [Mass fraction] 100 % Isaias Slabaugh PA-C Work Phone: [facility] 10-30-2024 09:47-0500 Systolic blood pressure 114 mm[Hg] Isaias Slabaugh PA-C Work Phone: [facility] 01-16-2024 17:26-0500 Body height 157.48 cm [facility] 01-16-2024 17:26-0500 Body mass index (BMI) [Ratio] 21.4 kg/m2 [facility] 01-16-2024 17:26-0500 Body temperature 97.9 [degF] [facility] 01-16-2024 17:26-0500 Body weight 53.07 kg [facility] 01-16-2024 17:26-0500 Diastolic blood pressure 70 mm[Hg] [facility] 01-16-2024 17:26-0500 Heart rate 82 /min [facility] 01-16-2024 17:26-0500 Respiratory rate 18 /min [facility] 01-16-2024 17:26-0500 SaO2% (BldA) [Mass fraction] 98 % [facility] 01-16-2024 17:26-0500 Systolic blood pressure 120 mm[Hg] [facility] 05-03-2022 17:11-0400 Body height 157.48 cm [facility] Work Phone: 05-03-2022 17:11-0400 Body mass index (BMI) [Ratio] 21.4 kg/m2 [facility] Work Phone: 05-03-2022 17:11-0400 Body temperature 97.9 [degF] [facility] Work Phone: 05-03-2022 17:11-0400 Body weight 53.07 kg [facility] Work Phone: 05-03-2022 17:11-0400 Diastolic blood pressure 50 mm[Hg] [facility] Work Phone: 05-03-2022 17:11-0400 Heart rate 92 /min [facility] Work Phone: 05-03-2022 17:11-0400 Respiratory rate 18 /min [facility] Work Phone: 05-03-2022 17:11-0400 SaO2% (BldA) [Mass fraction] 99 % [facility] Work Phone: 05-03-2022 17:11-0400 Systolic blood pressure 90 mm[Hg] [facility] Work Phone: Encounters Encounter Date Encounter Type Care Provider Facility Start: 05-07-2025 End: 05-07-2025 ambulatory Madonna Kline CANAL SUPERINTENDENT-C Work Phone: [facility] Work Phone: Start: 03-01-2025 End: 03-01-2025 ambulatory SELF Facility:[facility] Start: 03-01-2025 End: 03-01-2025 Office outpatient new 30 minutes Mayte Shultz PA-C Work Phone: [facility] Comment on above: Acute non-recurrent sinusitis, unspecified location (Primary Dx) Start: 12-16-2024 End: 12-16-2024 ambulatory Madonna Kline CANAL SUPERINTENDENT Facility:[facility] Start: 10-30-2024 End: 10-30-2024 ambulatory Facility:[facility] Start: 10-30-2024 End: 10-30-2024 Patient encounter procedure Isaias BOSTON-C Work Phone: [facility] Comment on above: URI with cough and c ongestion (Primary Dx); Sore throat; Nasal sore; Sinobronchitis Start: 06-05-2024 End: 06-05-2024 ambulatory Madonna Kline CANAL SUPERINTENDENT Facility:[facility] Start: 01-16-2024 End: 01-16-[address] [facility] Work Phone: Start: 01-16-2024 End: 01-16-[address] [facility] Work Phone: Start: 01-16-2024 End: 01-16-2024 ambulatory Madonna Kline CANAL SUPERINTENDENT Facility:[facility] Start: 05-03-2022 End: 05-03-[address] [facility] Start: 10-16-2018 End: 10-16-2018 Patient encounter procedure CELENA TOBIN) [facility] Procedures Date Procedure Procedure Detail Performing Clinician Start: 12-12-2024 STREP A MOLECULAR (POC) Isaias Esquivel PA-C Work Phone: Start: 11-03-2019 Colonoscopy Isaias dahl PA-C Work Phone: Plan of Treatment Date Care Activity Detail Author Start: 2034 RSV Vaccine (1 - 1-dose 75+ series) RSV Vaccine (1 - 1-dose 75+ series) [facility] Start: 07-02-2029 Urine microalbumin profile DTaP,Tdap,Td Vaccine (2 - Td or Tdap) [facility] Start: 11-19-2024 Advance Directive Discussion Advance Directive Discussion [facility] Start: 11-03-2024 Screening for malignant neoplasm of colon [facility] Start: 2024 Advance Directive Discussion Advance Directive Discussion [facility] Start: 2024 Screening for osteoporosis Bone Density Screening [facility] Start: 07-20-2024 Covid-19 Vaccine () Covid-19 Vaccine () [facility] Start: 11-17-2020 Annual PCP Team Chronic Disease Visit Annual PCP Team Chronic Disease Visit [facility] Start: 11-17-2020 Diabetic foot examination Diabetic Foot Exam [facility] Start: 07-02-2020 Hepatitis B screening Urine Albumin:Creatinine Ratio [facility] Start: 07-02-2020 Hepatitis B surface antibody level LDL Cholesterol [facility] Start: 02-16-2020 Hemoglobin A1c measurement HbA1C [facility] Start: 12-06-2017 Screening for malignant neoplasm of breast Mammogram Screening [facility] Start: 2009 Shingrix Vaccine (1 of 2) Shingrix Vaccine (1 of 2) [facility] Start: 2004 Screening for malignant neoplasm of colon [facility] Start: 1978 Pneumococcal Vaccine: 50+ (1 of 2 - PCV) Pneumococcal Vaccine: 50+ (1 of 2 - PCV) [facility] Start: 1977 Annual PCP Team Chronic Disease Visit Annual PCP Team Chronic Disease Visit [facility] Start: 1977 Anxiety Screening Anxiety Screening [facility] Start: 1977 Depression Screening Depression Screening [facility] Start: 1977 HIV screening HIV Screening [facility] Start: 1969 Glaucoma screening Dilated Retinal Exam [facility] Start: 1965 Pneumococcal Vaccine: 65+ (1 of 2 - PCV) Pneumococcal Vaccine: 65+ (1 of 2 - PCV) [facility] COVID & INFLUENZA A/ B & RSV PCR, ROUTINE COVID & INFLUENZA A/B & RSV PCR, ROUTINE Microbiology Routine URI with cough and congestion 10/30/2024 9:56 AM EST [facility] Work Phone: Immunizations Immunization Date Immunization Notes Care Provider Blanca galan 07-02-2019 tetanus toxoid, redu lyssa diphtheria toxoid, and acellular pertussis vaccine, adsorbed Isaias Slabaugh PA-C Work Phone: [facility] 10-16-2018 influenza, injectabl e, quadrivalent, contains preservative Isaias Slabaugh PA-C Work Phone: [facility] 10-03-2017 influenza, injectabl e, quadrivalent, contains preservative Isaias Slabaugh PA-C Work Phone: [facility] Payers Date Payer Category Payer Blue Jason Jones BLUE ACCE SS PPO Member Subscriber Plan / Payer (Effective 2024-Present) Name: Belgica Martinez Relation to Subscriber: Spouse Name: JOS MARTINEZ Date of : 1957 (Home) Address: [address] [address] Payer ID: [id number] (NAIC) Group ID: Not on file Type: PPO Address: [address] [place] [id number] 2024 Unknown VAZQUEZ CADET ACCE SS PPO [id number] 2024-Present [phone] [address] [place] [address] PPO [id number] 2024 Self-pay [id number] 2024 Unknown [id number] Unknown [id number] Unknown [id number] Unknown [id number] Unknown [id number] Social History Date Type Detail Facility Start: 03-10-2021 End: 03-10-2021 Tobacco smoking status PRIS Unknown if ever smoked [facility] Start: 1960 Sex Assigned At Female [facility] Start: 11-22-[facility] History of tobacco use Cigarette Smoker [facility] Start: 11-22-2016 Tobacco use and exposure Smokeless tobacco non-user [facility] Start: 02-01-2020 Alcoholic beverage intake Current non-drinker of alcohol (finding) [facility] Start: 02-01-2020 End: 10-24-2020 History of Social function [facility] Start: 02-01-2020 End: 10-24-2020 Tobacco use panel [facility] National Score (1-10 0), lower number is lower risk Not on file [facility] Start: 1960 Sex assigned at Not on file C [facility] Start: 03-10-2021 Tobacco smoking stat [facility] Current Light tobacco smoker [facility] Medical Equipment Procedure Code Equipment Code Equipment Origin al Text Equipment Identifier Dates Patient tests tw ice daily DX E11.9 PLEASE FILL WITH ONE TOUCH ULTRA2 BLUE [id number] Start: 08-05-2018 Patient tests tw ice daily DX E11.9 PLEASE FILL WITH ONE TOUCH ULTRA2 [id number] Start: 01-25-2017 Clinical Notes 10-30-2024 to 05-07-2025 Note Date & Type Note Facility 05-07-2025 Progress note Note Date/Time May 07, 2025 4:20pm [facility] [address] [place] [address] OFFICE VISIT Date of Service: 05/07/25 MR#: [id number] Acct: [id number] Name: BELGICA MARTINEZ Rep #: [id number] : 1960 Provider: MIAH Kline Age/Sex: 64/F Location: [facility] Status: Signed Intake Vital Signs 12/16/24 15:52 05/07/25 15:45 Height 5 ft 2 in 5 ft 2 in Weight: 104 lb BMI 19.0 BP 100/60 Blood Pressure Location Rt brachial Position Sitting Respiration 18 Temp 97.7 F L Temp Source Surface Pulse 84 Pulse Source Doppler Pulse Oximetry (%) 99 Oxygen Delivery Method room air Intake Visit Reasons: Diabetes Mellitus Type 2 A1c/meds Accompanied by: Self Is patient in pain?: No Allergies ciprofloxacin Allergy (Severe, Verified 11/08/20 17:34) rash and does not feel well N Latex, Natural Rubber Allergy (Severe, Verified 11/08/20 17:34) rash Medications ?Medication ?Instructions ?Recorded ?Confirmed ?Type cholecalciferol (vitamin D3) 125 125 mcg PO DAILY 10/2005/07/25 History mcg (5,000 unit) capsule cyanocobalamin (vitamin B-12) 1,000 mcg PO DAILY 11/0805/07/25 History 1,000 mcg tablet niacin 1,000 mg tablet,extended 1,000 mg PO QHS 05/07/25 History release vitamin E 200 unit capsule 200 unit PO BID 11/08/20 History zinc 50 mg tablet 50 mg PO DAILY 12/22/2004/19 History loratadine-pseudoephedrine ER 10 1 tab PO DAILY #90 ta bs 06/20/23 05/07/25 Rx mg-240 mg tablet,extended [id number] (Claritin-D 24 Hour) hydroxychloroquine 200 mg tablet 200 mg PO BID #180 ta bs 12/16/24 05/07/25 Rx meloxicam 15 mg tablet 15 mg PO QDAY #90 tabs 12/1605/07/25 Rx metformin 1,000 mg tablet 1,000 mg PO BID #180 tabs 05/07/25 Rx pravastatin 20 mg tablet 20 mg PO QHS #90 tabs 05/07/25 Rx tirzepatide 5 mg/0.5 mL 5 mg (0.5 mL) subcut QWEEK 3 0 days 05/07/25 05/07/25 Rx subcutaneous pen injector #2.5 mL Is last menstrual period known: No Post menopausal: Yes Patient : No PFSH Medical History Hyperlipidemia Lupus Rheumatoid arthritis Trigger thumb of both hands Trigger finger of both hands FHx: total abdominal hysterectomy and bilateral salpingo-oophorectomy Cysts of both ovaries Abdominal adhesions Endometriosis Diabetes type 2, uncontrolled Surgical History Ulnar nerve entrapment Hx of appendectomy History of tonsillectomy H/O carpal tunnel repair History of bilateral knee replacement Hx of section Family History Other Bladder cancer Bleeding disorder CVA (cerebral vascular accident) Cancer Cervical cancer Endometriosis Stomach cancer Social History Smoking Status: Light Smoker (<10/day) HPI HPI HPI HPI: BELGICA MARTINEZ, is a 64 F who presents to the office today for med refill for her diabetes .She is on the terzepatide 5 mg weekly ROS Const Constitutional: No anorexia, body ache, chills, excessive sweating, fatigue, fever(s), frequent falls, headache(s), decreased energy, malaise, night sweats, snoring, weakness, weight change, sleep problems, abnormal sleep pattern, changein appetite or other Eyes Eyes: No blurry vision, change in vision, double vision, discharge, dry eyes, bulging eyes, floaters, visual disturbances, eye pain, Light sensitivity, spots in vision, tunnel vision or other ENT ENT: No abnormal hearing, ear or mastoid pain, ear discharge, ear pressure, hearing loss, tinnitus, dizziness/vertigo, balance problems, nosebleed/epistaxis, nasal congestion, nasal obstruction, nose pain, sinus pressure, sinus pain, nasal discharge, post nasal drip, headache(s), facial pain, dental pain, dry mouth, difficulty swallowing, bad breath, hoarseness, lipswelling, mouth lesions, mouth pain, neck pain, sore throat, tongue swelling, throat swelling or other Resp Respiratory: No cough, change in phlegm color, chest congestion, excessive phlegm production, hemoptysis, pain on inspiration, shortness of breath, pain with cough, snoring, stridor, wheezing or other Cardio Cardiology: No chest pain at rest, chest pain with exertion, leg pain with exertion, excessive sweating, shortness of breath, dyspnea on exertion, generalized swelling, irregular heart rhythm, lightheadedness, orthopnea, radiating jaw, neck or arm pain, fast heart rate, slow heart rate, palpitations or other Gastro GI: No abdominal pain, No belching, No bloating, No change in bowel habits, No change in stool character, No coffee ground emesis, No constipation, No cramping, No diarrhea, No heartburn, No Difficulty Swallowing, No feeling full early, No excessive flatus, No incontinent of stools, No Vomiting blood/hematemesis, No Blood in stool, No loose stools, No Black,tarry stools, Nonausea/dyspepsia, No pain with swallowing, No vomiting, No hemorrhoids, No rectal pain and No other Genitourinary: No difficulty urinating, burning urination, painful urination, urinary frequency, urinary urgency or blood in urine Musc Musculoskeletal: No abnormal gait, joint pain, back pain, deformity, joint swelling, limited range of motion, loss of height, muscle cramps, muscle weakness, decreased muscle mass, myalgias, neck pain, numbness, radiating pain into limb, stiffness, tingling, restless legs, leg pain with exertion or other Skin Skin: No acne, hair loss in leg, change in hair, nail changes, boil, change in skin color, dry skin, redness, excessive hair growth, yellowing of the eye, lesions, itchy eyes, rash, skin pain, skin ulcer, sores, skin swelling, wounds or other Breast Breast: No other Neuro Neurology: No abnormal gait, abnormal hearing, abnormal movements, abnormal speech, behavioral changes, confusion, unsteady gait/balance, dizziness, weakness, frequent falls, headache(s), lack of coordination, loss of vision, memory loss, numbness, tingling, visual disturbances, restless legs, fainting, tremor(s) or other Psych Psychiatric: No abnormal sleep pattern, No lack of enjoyment, No anxiety, No behavioral changes, No change in appetite, No confusion, No depression, No difficulty concentrating, No hopelessness, No irritability, No memory loss, No mood swings, No panic attacks, No paranoia, No Thoughts of harming yourself/Others, No hallucinations and No other Endo Endo: No excessive sweating, No fatigue and No other Aller/Imm Allergy/Immunologic: No itchy eyes, lip swelling, throat swelling, tongue swelling or wheezing Exam Const Constitutional: Yes cooperative and Yes healthy appearing Nutritional Appearance: Yes thin Orientation: Yes alert, awake and oriented x3 HENMT Head: Yes normocephalic Ear: Yes hearing grossly normal bilaterally TM-Right: normal TM-Left: normal Pinna-Right: within normal limits Pinna-Left: within normal limits Face: Yes normal facial exam Nose: Yes external nose normal Mouth: Yes oral mucosae normal Neck Neck: normal visual inspection Eyes General: Yes appearance normal, both eyes and all related structures Chest Chest palpation & inspection: Yes normal inspection of the chest Resp Effort & Inspection: Yes normal respiratory effort and able to speak in completesentences; No stridor Auscultation: Yes clear to auscultation bilaterally Cardio Palpitation: Yes normal PMI Rate: Yes regular rate Rhythm: Yes regular rhythm GI Inspection: Yes normal to inspection Auscultation: Yes normal bowel sounds Palpation: Yes soft and no hepatosplenomegaly Rectal Exam: No hemorrhoids Musc Cervical Spine: Yes cervical ROM normal Thoracic/Lumbar Spine: Yes thoracic and lumbar spine normal to inspection Skin General: no rashes or lesions noted Lesions: Yes no lesions Extrem General: Yes normal to inspection Neuro General: Yes alert and oriented x3 Speech: Yes speech normal Gait: Yes normal gait Motor: muscle tone normal throughout; No weakness Psych Appearance: Positive grossly normal Mood: Positive congruent mood Affect: Positive normal affect Speech and Movement: Yes speech and movement normal Attitude: Yes cooperative Thought Process: Yes normal Thought Content: Yes normal Judgment: Yes judgment good Coding Level of Care Code Off vis,est,level 4 Diagnoses Uncontrolled type 2 diabetes mellitus with hyperglycemia E11.65 Glycemic state: with hyperglycemia Other specified hypothyroidism E03.8 Hypothyroidism type: other Assessment and Plan Assessment and Plan (1) Diabetes type 2, uncontrolled: Status: Acute Qualifiers: Glycemic state: with hyperglycemia Qualified Code(s): E11.65 - Type 2 diabetes mellitus with hyperglycemia (2) Hypothyroidism: Status: Acute Qualifiers: Hypothyroidism type: other Qualified Code(s): E03.8 - Other specified hypothyroidism Orders: Orders POC A1C Today E11.65 - Type 2 diabetes mellitus with hyperglycemia Medications: Refilled tirzepatide 5 mg (0.5 mL) subcut QWEEK 2.5 mL 12RF 30 days Patient Instructions: Continue the medication as prescribed follow up 6 months 05/07/25 1620 <Electronically signed by Madonna Reynolds on CANAL SUPERINTENDENT CANAL SUPERINTENDENT-C> Date _ Madonna Kline NP CANAL SUPERINTENDENT-C CC: ~ [facility] Work Phone: 1(108) 802-888106-19-2025 Evaluation note* Diagnosis Onset Date Resolution Status Admit Date Diabetes type 2, uncontrolled acute May 07, 2025 3:41pm Hypothyroidism acute May 07, 2025 3:41pm [facility] Work Phone: 1(607) 215-520206-19-2025 [facility] [address] [place] [address] OFFICE VISIT Date of Service: 05/07/25 MR#: [id number] Acct: [id number] Name: BELGICA MARTINEZ Rep #: [id number] : 1960 Provider: MIAH Kline Age/Sex: 64/F Location: [facility] Status: Signed Intake Vital Signs 12/16/24 15:52 05/07/25 15:45 Height 5 ft 2 in 5 ft 2 in Weight: 104 lb BMI 19.0 BP 100/60 Blood Pressure Location Rt brachial Position Sitting Respiration 18 Temp 97.7 F L Temp Source Surface Pulse 84 Pulse Source Doppler Pulse Oximetry (%) 99 Oxygen Delivery Method room air Intake Visit Reasons: Diabetes Mellitus Type 2 A1c/meds Accompanied by: Self Is patient in pain?: No Allergies ciprofloxacin Allergy (Severe, Verified 11/08/20 17:34) rash and does not feel well N Latex, Natural Rubber Allergy (Severe, Verified 11/08/20 17:34) rash Medications ?Medication ?Instructions ?Recorded ?Confirmed ?Type cholecalciferol (vitamin D3) 125 125 mcg PO DAILY 10/2005/07/25 History mcg (5,000 unit) capsule cyanocobalamin (vitamin B-12) 1,000 mcg PO DAILY 11/0805/07/25 History 1,000 mcg tablet niacin 1,000 mg tablet,extended 1,000 mg PO QHS 05/07/25 History release vitamin E 200 unit capsule 200 unit PO BID 11/08/20 History zinc 50 mg tablet 50 mg PO DAILY 12/22/2004/19 History loratadine-pseudoephedrine ER 10 1 tab PO DAILY #90 ta bs 06/20/23 05/07/25 Rx mg-240 mg tablet,extended [id number] (Claritin-D 24 Hour) hydroxychloroquine 200 mg tablet 200 mg PO BID #180 ta bs 12/16/24 05/07/25 Rx meloxicam 15 mg tablet 15 mg PO QDAY #90 tabs 12/1605/07/25 Rx metformin 1,000 mg tablet 1,000 mg PO BID #180 tabs 05/07/25 Rx pravastatin 20 mg tablet 20 mg PO QHS #90 tabs 05/07/25 Rx tirzepatide 5 mg/0.5 mL 5 mg (0.5 mL) subcut QWEEK 3 0 days 05/07/25 05/07/25 Rx subcutaneous pen injector #2.5 mL Is last menstrual period known: No Post menopausal: Yes Patient : No PFSH Medical History Hyperlipidemia Lupus Rheumatoid arthritis Trigger thumb of both hands Trigger finger of both hands FHx: total abdominal hysterectomy and bilateral salpingo-oophorectomy Cysts of both ovaries Abdominal adhesions Endometriosis Diabetes type 2, uncontrolled Surgical History Ulnar nerve entrapment Hx of appendectomy History of tonsillectomy H/O carpal tunnel repair History of bilateral knee replacement Hx of section Family History Other Bladder cancer Bleeding disorder CVA (cerebral vascular accident) Cancer Cervical cancer Endometriosis Stomach cancer Social History Smoking Status: Light Smoker (<10/day) HPI HPI HPI HPI: BELGICA MARTINEZ, is a 64 F who presents to the office today for med refill for her diabetes .She is on the terzepatide 5 mg weekly ROS Const Constitutional: No anorexia, body ache, chills, excessive sweating, fatigue, fever(s), frequent falls, headache(s), decreased energy, malaise, night sweats, snoring, weakness, weight change, sleep problems, abnormal sleep pattern, changein appetite or other Eyes Eyes: No blurry vision, change in vision, double vision, discharge, dry eyes, bulging eyes, floaters, visual disturbances, eye pain, Light sensitivity, spots in vision, tunnel vision or other ENT ENT: No abnormal hearing, ear or mastoid pain, ear discharge, ear pressure, hearing loss, tinnitus,dizziness/vertigo, balance problems, nosebleed/epistaxis, nasal congestion, nasal obstruction, nosepain, sinus pressure, sinus pain, nasal discharge, post nasal drip, headache(s), facial pain, dental pain, dry mouth, difficulty swallowing, bad breath, hoarseness, lipswelling, mouth lesions, mouth pain, neck pain, sore throat, tongue swelling, throat swelling or other Resp Respiratory: No cough, change in phlegm color, chest congestion, excessive phlegm production, hemoptysis, pain on inspiration, shortness of breath, pain with cough, snoring, stridor, wheezing or other Cardio Cardiology: No chest pain at rest, chest pain with exertion, leg pain with exertion, excessive sweating, shortness of breath, dyspnea on exertion, generalized swelling, irregular heart rhythm, lightheadedness, orthopnea, radiating jaw, neck or arm pain, fast heart rate, slow heart rate, palpitations or other Gastro GI: No abdominal pain, No belching, No bloating, No change in bowel habits, No change in stool character, No coffee ground emesis, No constipation, No cramping, No diarrhea, No heartburn, No Difficulty Swallowing, No feeling full early, No excessive flatus, No incontinent of stools, No Vomiting bloo d/hematemesis, No Blood in stool, No loose stools, No Black,tarry stools, Nonausea/dyspepsia, No pain with swallowing, No vomiting, No hemorrhoids, No rectal pain and No other Genitourinary: No difficulty urinating, burning urination, painful urination, urinary frequency, urinary urgency or blood in urine Musc Musculoskeletal: No abnormal gait, joint pain, back pain, deformity, joint swelling, limited range of motion, loss of height, muscle cramps, muscle weakness, decreased muscle mass, myalgias, neck pain, numbness, radiating pain into limb, stiffness, tingling, restless legs, leg pain with exertion orother Skin Skin: No acne, hair loss in leg, change in hair, nail changes, boil, change in skin color, dry skin, redness, excessive hair growth, yellowing of the eye, lesions, itchy eyes, rash, skin pain, skin ulcer, sores, skin swelling, wounds or other Breast Breast: No other Neuro Neurology: No abnormal gait, abnormal hearing, abnormal movements, abnormal speech, behavioral changes, confusion, unsteady gait/balance, dizziness, weakness, frequent falls, headache(s), lack of coordination, loss of vision, memory loss, numbness, tingling, visual disturbances, restless legs, fainting, tremor(s) or other Psych Psychiatric: No abnormal sleep pattern, No lack of enjoyment, No anxiety, No behavioral changes, Nochange in appetite, No confusion, No depression, No difficulty concentrating, No hopelessness, No irritability, No memory loss, No mood swings, No panic attacks, No paranoia, No Thoughts of harming yo urself/Others, No hallucinations and No other Endo Endo: No excessive sweating, No fatigue and No other Aller/Imm Allergy/Immunologic: No itchy eyes, lip swelling, throat swelling, tongue swelling or wheezing Exam Const Constitutional: Yes cooperative and Yes healthy appearing Nutritional Appearance: Yes thin Orientation: Yes alert, awake and oriented x3 HENMT Head: Yes normocephalic Ear: Yes hearing grossly normal bilaterally TM-Right: normal TM-Left: normal Pinna-Right: within normal limits Pinna-Left: within normal limits Face: Yes normal facial exam Nose: Yes external nose normal Mouth: Yes oral mucosae normal Neck Neck: normal visual inspection Eyes General: Yes appearance normal, both eyes and all related structures Chest Chest palpation & inspection: Yes normal inspection of the chest Resp Effort & Inspection: Yes normal respiratory effort and able to speak in completesentences; No stridor Auscultation: Yes clear to auscultation bilaterally Cardio Palpitation: Yes normal PMI Rate: Yes regular rate Rhythm: Yes regular rhythm GI Inspection: Yes normal to inspection Auscultation: Yes normal bowel sounds Palpation: Yes soft and no hepatosplenomegaly Rectal Exam: No hemorrhoids Musc Cervical Spine: Yes cervical ROM normal Thoracic/Lumbar Spine: Yes thoracic and lumbar spine normal to inspection Skin General: no rashes or lesions noted Lesions: Yes no lesions Extrem General: Yes normal to inspection Neuro General: Yes alert and oriented x3 Speech: Yes speech normal Gait: Yes normal gait Motor: muscle tone normal throughout; No weakness Psych Appearance: Positive grossly normal Mood: Positive congruent mood Affect: Positive normal affect Speech and Movement: Yes speech and movement normal Attitude: Yes cooperative Thought Process: Yes normal Thought Content: Yes normal Judgment: Yes judgment good Coding Level of Care Code Off vis,est,level 4 Diagnoses Uncontrolled type 2 diabetes mellitus with hyperglycemia E11.65 Glycemic state: with hyperglycemia Other specified hypothyroidism E03.8 Hypothyroidism type: other Assessment and Plan Assessment and Plan (1) Diabetes type 2, uncontrolled: Status: Acute Qualifiers: Glycemic state: with hyperglycemia Qualified Code(s): E11.65 - Type 2 diabetes mellitus with hyperglycemia (2) Hypothyroidism: Status: Acute Qualifiers: Hypothyroidism type: other Qualified Code(s): E03.8 - Other specified hypothyroidism Orders: Orders POC A1C Today E11.65 - Type 2 diabetes mellitus with hyperglycemia Medications: Refilled tirzepatide 5 mg (0.5 mL) subcut QWEEK 2.5 mL 12RF 30 days Patient Instructions: Continue the medication as prescribed follow up 6 months 05/07/25 1620 on CANAL SUPERINTENDENT CANAL SUPERINTENDENT-C> Date _ Madonna Kline NP CANAL SUPERINTENDENT-C CC: ~ [facility]04-13-2025 NoteHNO ID: [id number] Author: MAYTE SHULTZ PA-C Service: ? Author Type: Physician Compression Molding Machine Operator Type: Progress Notes Filed: 03/01/2025 09:26 Note Text: This note was created using [employer]. Subjective Belgica Martinez is a 64 year old female. Patient is a 64-year-old female who complains of worsening congestion, sinus pressure, facial pain, sore throat and loose cough that she has been experiencing for the past 3 weeks. Patient reports no fever, chills or myalgia. Patient states that her symptoms are significantly worse at night and when she awakens in the morning. Patient has no history of asthma or COPD and states that she smokes occasionally. Sinus Problem Associated symptoms include congestion, coughing and a sore throat. Review of Systems HENT: Positive for congestion, ear pain, postnasal drip, sinus pressure, sinus pain and sore throat. Respiratory: Positive for cough. All other systems reviewed and are negative. Objective BP 94/57 Pulse 92 Temp 37.1 ?C (98.8 ?F) Resp 16 Wt 48.7 kg (107 lb 5.8 oz) SpO2 96% BMI 18.43 kg/m? Physical Exam Vitals and nursing note reviewed. Constitutional: Appearance: Normal appearance. She is normal weight. HENT: Head: Normocephalic and atraumatic. Right Ear: Tympanic membrane, ear canal and external ear normal. Left Ear: Tympanic membrane, ear canal and external ear normal. Nose: Congestion present. Mouth/Throat: Mouth: Mucous membranes are moist. Pharynx: Oropharynx is clear. Eyes: Extraocular Movements: Extraocular movements intact. Conjunctiva/sclera: Conjunctivae normal. Pupils: Pupils are equal, round, and reactive to light. Cardiovascular: Rate and Rhythm: Normal rate and regular rhythm. Pulses: Normal pulses. Heart sounds: Normal heart sounds. Pulmonary: Effort: Pulmonary effort is normal. Breath sounds: Normal breath sounds. Musculoskeletal: Cervical back: Normal range of motion and neck supple. Skin: General: Skin is warm and dry. Capillary Refill: Capillary refill takes less than 2 seconds. Neurological: General: No focal deficit present. Mental Status: She is alert and oriented to person, place, and time. Psychiatric: Mood and Affect: Mood normal. Behavior: Behavior normal. Thought Content: Thought content normal. Judgment: Judgment normal. Assessment and Plan Physical exam findings as noted above. Patient was provided with prescriptions for Augmentin 875-125 mg, Sudafed 120 mg and Tessalon 100 mg. Supportive care instructions were discussed and the patient verbalizes clear understanding of same. CLINICAL IMPRESSION: Acute Sinusitis ASSESSMENT/PLAN: 1. Acute non-recurrent sinusitis, unspecified location - ICD9: 461.9, ICD10: J01.90 - AMOXICILLIN 875 MG-POTASSIUM CLAVULANATE 125 MG TABLET - BENZONATATE 100 MG CAPSULE - PSEUDOEPHEDRINE ER 120 MG TABLET,EXTENDED RELEASE MDM Risk of Complications, Morbidity, and/or Mortality Presenting problems: low Diagnostic procedures: low Management options: DARVIN [facility]04-13-2025 History of Present illness Narrative* Mayte Shultz PA-C - 03/01/2025 9:23 AM EDT This note was created using [employer]. Subjective Belgica Martinez is a 64 year old female. Patient is a 64-year-old female who complains of worsening congestion, sinus pressure, facial pain,sore throat and loose cough that she has been experiencing for the past 3 weeks. Patient reports nofever, chills or myalgia. Patient states that her symptoms are significantly worse at night and when she awakens in the morning. Patient has no history of asthma or COPD and states that she smokes occasionally. Sinus Problem Associated symptoms include congestion, coughing and a sore throat. Review of Systems HENT: Positive for congestion, ear pain, postnasal drip, sinus pressure, sinus pain and sore throat. Respiratory: Positive for cough. All other systems reviewed and are negative. Objective BP 94/57 Pulse 92 Temp 37.1 C (98.8 F) Resp 16 Wt 48.7 kg (107 lb 5.8 oz) SpO2 96% BMI 18.43 kg/m Physical Exam Vitals and nursing note reviewed. Constitutional: Appearance: Normal appearance. She is normal weight. HENT: Head: Normocephalic and atraumatic. Right Ear: Tympanic membrane, ear canal and external ear normal. Left Ear: Tympanic membrane, ear canal and external ear normal. Nose: Congestion present. Mouth/Throat: Mouth: Mucous membranes are moist. Pharynx: Oropharynx is clear. Eyes: Extraocular Movements: Extraocular movements intact. Conjunctiva/sclera: Conjunctivae normal. Pupils: Pupils are equal, round, and reactive to light. Cardiovascular: Rate and Rhythm: Normal rate and regular rhythm. Pulses: Normal pulses. Heart sounds: Normal heart sounds. Pulmonary: Effort: Pulmonary effort is normal. Breath sounds: Normal breath sounds. Musculoskeletal: Cervical back: Normal range of motion and neck supple. Skin: General: Skin is warm and dry. Capillary Refill: Capillary refill takes less than 2 seconds. Neurological: General: No focal deficit present. Mental Status: She is alert and oriented to person, place, and time. Psychiatric: Mood and Affect: Mood normal. Behavior: Behavior normal. Thought Content: Thought content normal. Judgment: Judgment normal. Assessment and Plan Physical exam findings as noted above. Patient was provided with prescriptions for Augmentin 875-125 mg, Sudafed 120 mg and Tessalon 100 mg. Supportive care instructions were discussed and the patient verbalizes clear understanding of same. CLINICAL IMPRESSION: Acute Sinusitis ASSESSMENT/PLAN: 1. Acute non-recurrent sinusitis, unspecified location - ICD9: 461.9, ICD10: J01.90 - AMOXICILLIN 875 MG-POTASSIUM CLAVULANATE 125 MG TABLET - BENZONATATE 100 MG CAPSULE - PSEUDOEPHEDRINE ER 120 MG TABLET,EXTENDED RELEASE MDM Risk of Complications, Morbidity, and/or Mortality Presenting problems: low Diagnostic procedures: low Management options: kirill Shultz PA-C [facility]* Patient Instructions* Isaias Esquivel PA-C - 10/30/2024 10:00 AM EST ASSESSMENT/PLAN: 1. URI with cough and congestion - X 4 days - COVID & INFLUENZA A/B & RSV PCR, ROUTINE - TESSALON 2. Sore throat - STREP A MOLECULAR (POC)- negative 3. Nasal sore - - MUPIROCIN 2 % TOPICAL OINTMENT - DOXYCYCLINE MONOHYDRATE 100 MG CAPSULE Discussed strep test results. Discussed OTC options: Encourage fluids, rest. Flonase Claritin D Tylenol and Motrin for pain and fever Saline Nasil spray, Neti Pot, vaporizer, Vicks. Try Cepocol lozenges or Chloraseptic throat spray. Warm salt water gargles. Cough and deep breath- 10x/hr while awake. May use OTC Mucinex (guaifenesin) as directed for cough Call PCP if sx worsen or no better. If symptoms worsen, or new symptoms develop go to ER. If you have worsening of breathing or breathing changes- go to ER. If you have persistent fever unrelieved by Tylenol/Motrin- go to the ER. Follow up as needed. Barriers to learning: none. The patient verbalizes understanding and is in agreement with plan of care. - Red flags for in person care discussed - All questions answered Isaias Esquivel PA-C documented [facility] NoteHNO ID: [id number] Author: ISAIAS ESQUIVEL PA-C Service: ? Author Type: Physician Compression Molding Machine Operator Type: Progress Notes Filed: 10/30/2024 10:09 Note Text: Surgical mask and gloves worn for all in-person care. 10/30/2024 Patient presents with: Viral Syndrome: Congestion for 4 days, sore throat ears feel congestion SUBJECTIVE: This is a 64 year old that is here today for concern for URI symptoms. HPI per the patient. The patient complains of cough, ear fullness, sore throat, and sinus congestion/pressure/drainage x 4-5 days. She reports feeling feverish 2-3 days ago, but no temps taken. No feeling like that since. Has a large, tender, sore in the left nostril. Denies chills, sweats, body aches. Patient denies wheezing, shortness of breath, increased WOB, or chest pain. COVID exposure: none Influenza exposure: none RSV exposure: none Covid Immunization Dates Overdue - Covid-19 Vaccine () Overdue since 07/20/2024 09/26/2021 Outside Immunization: COVID-19, mRNA, LNP-S, PF, 100 mcg/0.5mL dose or 50 mcg/0.25mL dose 03/14/2021 Outside Immunization: COVID-19, mRNA, LNP-S, PF, 100 mcg/0.5mL dose or 50 mcg/0.25mL dose 02/17/2021 Outside Immunization: COVID-19, mRNA, LNP-S, PF, 100 mcg/0.5mL dose or 50 mcg/0.25mL dose COVID vaccine this year: none Influenza vaccine this year: none RSV vaccine this year: none Asthma: none Pneumonia: none Tobacco: none Pain on scale of 0-10 with 0 being no pain and 10 being greatest pain: - Nothing makes the symptoms better. Nothing makes them worse. Self-treatment:. none The severity is mild and the symptoms are not improving. The patient did not have a similar problem in the last 3 months. The patient did not take any antibiotics in the last 3 months. Barriers to learning: none. Reviewed meds, OTCs, herbals or supplements. Reviewed allergies, medications, social history, and past medical history. PAST MEDICAL HISTORY Diagnosis Date Arthritis Diabetes (HCC) History of migraine headaches Hyperlipidemia ALLERGIES Ciprofloxacin, Latex, and Levaquin [Levofloxacin] MEDICATIONS Current Outpatient Medications Medication Sig JANUMET 50-1,000 mg per tablet TAKE 1 TABLET BY MOUTH TWICE A DAY WITH MEALS pravastatin (PRAVACHOL) 20 mg tablet TAKE 1 TABLET BY MOUTH EVERY DAY glipiZIDE (GLUCOTROL) 10 mg tablet TAKE 1 TABLET BY MOUTH TWICE A DAY BEFORE MEALS fluticasone (FLONASE) 50 mcg/actuation nasal spray Use 2 Sprays in each nostril once daily. Benzonatate 200 mg capsule Take 1 capsule by mouth three times daily as needed for Cough. clotrimazole-betameth dip-zinc 1-0.05-20 % cmpk Apply once daily as needed blood sugar diagnostic (PeopleCubeUCH ULTRA TEST) test strip Patient tests twice daily DX E11.9 PLEASE FILL WITH ONE TOUCH ULTRA2 BLUE niacin ER (NIASPAN) 500 mg tablet Take 1 tablet by mouth daily at bedtime. loratadine-pseudoephedrine ER (CLARITIN-D 12 HOUR) 5-120 mg per tablet Take one tablet by mouth once daily as needed for congestion Lancets (MesosphereTOUCH ULTRASOFT LANCETS) lancets Patient tests twice daily DX E11.9 PLEASE FILL WITH ONE TOUCH ULTRA2 No current facility-administered medications for this visit. Medications and allergies reviewed by this provider. SOCIAL HISTORY Social History Tobacco Use Smoking status: Every Day Types: Cigarettes Smokeless tobacco: Never Substance Use Topics Alcohol use: No Drug use: No REVIEW OF SYSTEMS Review of Systems Constitutional: Negative. HENT: Positive for congestion, postnasal drip, rhinorrhea and sinus pressure. Ear fullness Eyes: Negative. Respiratory: Positive for cough. Negative for chest tightness. Cardiovascular: Negative. Gastrointestinal: Negative. Endocrine: Negative. Genitourinary: Negative. Musculoskeletal: Negative. Skin: Negative. Nasal sore Allergic/Immunologic: Negative. Neurological: Negative. Hematological: Negative. Psychiatric/Behavioral: Negative. All other systems reviewed and are negative. OBJECTIVE: BP 114/76 Pulse 92 Temp 37 ?C (98.6 ?F) Wt 51 kg (112 lb 7 oz) SpO2 100% BMI 19.30 kg/m? . Vital signs reviewed by this provider. Physical Exam Vitals reviewed. Constitutional: General: She is not in acute distress. Appearance: Normal appearance. She is well-developed and normal weight. She is not ill-appearing, toxic-appearing or diaphoretic. HENT: Head: Normocephalic and atraumatic. No right periorbital erythema or left periorbital erythema. Salivary Glands: Right salivary gland is not diffusely enlarged or tender. Left salivary gland is not diffusely enlarged or tender. Right Ear: Tympanic membrane, ear canal and external ear normal. Left Ear: Tympanic membrane, ear canal and external ear normal. Nose: Congestion and rhinorrhea present. Rhinorrhea is clear. Right Sinus: No maxillary sinus tenderness or frontal sinus tenderness. Left Sinus: No maxillary sinus tenderness or fron (more content not included)... [facility]12-[facility] History of Present illness Narrative* Isaias Esquivel PA-C - 10/30/2024 9:40 AM EST Images from the original note were not included. Surgical mask and gloves worn for all in-person care. 10/30/2024 Patient presents with: Viral Syndrome: Congestion for 4 days, sore throat ears feel congestion SUBJECTIVE: This is a 64 year old that is here today for concern for URI symptoms. HPI per the patient. The patient complains of cough, ear fullness, sore throat, and sinus congestion/pressure/drainage x4-5 days. She reports feeling feverish 2-3 days ago, but no temps taken. No feeling like that since. Has a large, tender, sore in the left nostril. Denies chills, sweats, body aches. Patient denies wheezing, shortness of breath, increased WOB, or chest pain. COVID exposure: none Influenza exposure: none RSV exposure: none Covid Immunization Dates Overdue - Covid-19 Vaccine ( season) Overdue since 07/20/2024 09/26/2021 Outside Immunization: COVID-19, mRNA, LNP-S, PF, 100 mcg/0.5mL dose or 50 mcg/0.25mL dose 03/14/2021 Outside Immunization: COVID-19, mRNA, LNP-S, PF, 100 mcg/0.5mL dose or 50 mcg/0.25mL dose 02/17/2021 Outside Immunization: COVID-19, mRNA, LNP-S, PF, 100 mcg/0.5mL dose or 50 mcg/0.25mL dose COVID vaccine this year: none Influenza vaccine this year: none RSV vaccine this year: none Asthma: none Pneumonia: none Tobacco: none Pain on scale of 0-10 with 0 being no pain and 10 being greatest pain: - Nothing makes the symptoms better. Nothing makes them worse. Self-treatment:. none The severity is mild and the symptoms are not improving. The patient did not have a similar problem in the last 3 months. The patient did not take any antibiotics in the last 3 months. Barriers to learning: none. Reviewed meds, OTCs, herbals or supplements. Reviewed allergies, medications, social history, and past medical history. PAST MEDICAL HISTORY Diagnosis Date Arthritis Diabetes (HCC) History of migraine headaches Hyperlipidemia ALLERGIES Ciprofloxacin, Latex, and Levaquin [Levofloxacin] MEDICATIONS Current Outpatient Medications Medication Sig JANUMET 50-1,000 mg per tablet TAKE 1 TABLET BY MOUTH TWICE A DAY WITH MEALS pravastatin (PRAVACHOL) 20 mg tablet TAKE 1 TABLET BY MOUTH EVERY DAY glipiZIDE (GLUCOTROL) 10 mg tablet TAKE 1 TABLET BY MOUTH TWICE A DAY BEFORE MEALS fluticasone (FLONASE) 50 mcg/actuation nasal spray Use 2 Sprays in each nostril once daily. Benzonatate 200 mg capsule Take 1 capsule by mouth three times daily as needed for Cough. clotrimazole-betameth dip-zinc 1-0.05-20 % cmpk Apply once daily as needed blood sugar diagnostic (ONETOUCH ULTRA TEST) test strip Patient tests twice daily DX E11.9 PLEASE FILL WITH ONE TOUCH ULTRA2 BLUE niacin ER (NIASPAN) 500 mg tablet Take 1 tablet by mouth daily at bedtime. loratadine-pseudoephedrine ER (CLARITIN-D 12 HOUR) 5-120 mg per tablet Take one tablet by mouth once daily as needed for congestion Lancets (ONETOUCH ULTRASOFT LANCETS) lancets Patient tests twice daily DX E11.9 PLEASE FILL WITH ONE TOUCH ULTRA2 No current facility-administered medications for this visit. Medications and allergies reviewed by this provider. SOCIAL HISTORY Social History Tobacco Use Smoking status: Every Day Types: Cigarettes Smokeless tobacco: Never Substance Use Topics Alcohol use: No Drug use: No REVIEW OF SYSTEMS Review of Systems Constitutional: Negative. HENT: Positive for congestion, postnasal drip, rhinorrhea and sinus pressure. Ear fullness Eyes: Negative. Respiratory: Positive for cough. Negative for chest tightness. Cardiovascular: Negative. Gastrointestinal: Negative. Endocrine: Negative. Genitourinary: Negative. Musculoskeletal: Negative. Skin: Negative. Nasal sore Allergic/Immunologic: Negative. Neurological: Negative. Hematological: Negative. Psychiatric/Behavioral: Negative. All other systems reviewed and are negative. OBJECTIVE: BP 114/76 Pulse 92 Temp 37 C (98.6 F) Wt 51 kg (112 lb 7 oz) SpO2 100% BMI 19.30 kg/m . Vital signs reviewed by this provider. Physical Exam Vitals reviewed. Constitutional: General: She is not in acute distress. Appearance: Normal appearance. She is well-developed and normal weight. She is not ill-appearing, toxic-appearing or diaphoretic. HENT: Head: Normocephalic and atraumatic. No right periorbital erythema or left periorbital erythema. Salivary Glands: Right salivary gland is not diffusely enlarged or tender. Left salivary gland is not diffusely enlarged or tender. Right Ear: Tympanic membrane, ear canal and external ear normal. Left Ear: Tympanic membrane, ear canal and external ear normal. Nose: Congestion and rhinorrhea present. Rhinorrhea is clear. Right Sinus: No maxillary sinus tenderness or frontal sinus tenderness. Left Sinus: No maxillary sinus tenderness or frontal sinus tenderness. Mouth/Throat: Lips: [place]. No lesions. Mouth: Mucous membranes are moist. No oral lesions. Dentition: No gum lesions. Tongue: No lesions. Tongue does not deviate from midline. Palate: No mass and lesions. Pharynx: Oropharynx is clear. Uvula midline. Postnasal drip present. No pharyngeal swelling, oropharyngeal exudate, posterior oropharyngeal erythema or uvula swelling. Tonsils: No tonsillar exudate or tonsillar abscesses. Eyes: General: Lids are normal. No scleral icterus. Right eye: No discharge. Left eye: No discharge. Extraocular Movements: Extraocular movements intact. Conjunctiva/sclera: Conjunctivae normal. Pupils: Pupils are equal, round, and reactive to light. Pupils are equal. Cardiovascular: Rate and Rhythm: Normal rate and regular rhythm. Heart sounds: Normal heart sounds. Pulmonary: Effort: Pulmonary effort is normal. Breath sounds: Normal breath sounds and air entry. Musculoskeletal: Cervical back: Full passive range of motion without pain. No spinous process tenderness or musculartenderness. Lymphadenopathy: Head: Right side of head: No submental, submandibular, tonsillar, preauricular or posterior auricular adenopathy. Left side of head: No submental, submandibular, tonsillar, preauricular or posterior auricular adenopathy. Cervical: No cervical adenopathy. Skin: General: Skin is warm. Capillary Refill: Capillary refill takes less than 2 seconds. Findings: No rash. Neurological: General: No focal deficit present. Mental Status: She is alert and oriented to person, place, and time. Cranial Nerves: No facial asymmetry. Psychiatric: Attention and Perception: Attention normal. Behavior: Behavior is cooperative. Belgica Martinez - COVID swab collected at time of office visit - Discussed symptom monitoring and supportive care - Red flag symptoms requiring follow up discussed ASSESSMENT/PLAN: 1. URI with cough and congestion - ICD9: 465.9, ICD10: J06.9 (primary diagnosis) X 4-5 days - COVID & INFLUENZA A/B & RSV PCR, ROUTINE - TESSALON 2. Sore throat - ICD9: 462, ICD10: J02.9 - STREP A MOLECULAR (POC)- negative 3. Nasal sore - ICD9: 478.19, ICD10: J34.89 - MUPIROCIN 2 % TOPICAL OINTMENT - DOXYCYCLINE MONOHYDRATE 100 MG CAPSULE Discussed strep test results. Discussed OTC options: Encourage fluids, rest. Flonase Claritin D Tylenol and Motrin for pain and fever Saline Nasil spray, Neti Pot, vaporizer, Vicks. Try Cepocol lozenges or Chloraseptic throat spray. Warm salt water gargles. Cough and deep breath- 10x/hr while awake. May use OTC Mucinex (guaifenesin) as directed for cough Call PCP if sx worsen or no better. If symptoms worsen, or new symptoms develop go to ER. If you have worsening of breathing or breathing changes- go to ER. If you have persistent fever unrelieved by Tylenol/Motrin- go to the ER. Follow up as needed. Barriers to learning: none. The patient verbalizes understanding and is in agreement with plan of care. This patient encounter involved the screening or treatment of novel coronavirus infection (COVID-19). - Red flags for in person care discussed - All questions answered Isaias Esquivel PA-C Medical Decision Making: Problems: Minimal: Self-limited or minor problem Moderate: Acute illness with systemic symptoms Data: Unique test result(s) reviewed: 1 Unique test(s) ordered: 2 Risk: Low: Low risk from testing/treatment Moderate: Drug management Medical Decision Making Level: 4 - Moderate I spent a total of 20 minutes on the date of the service which included preparing to see the patient, [id number] patient care, completing clinical documentation, performing a medically appropriate examination, counseling and educating the patient/family/caregiver, ordering medications, tests, or p rocedures, and communicating results to the patient/family/caregiver. documented in this encounterGalion [facility] HospitalEvaluation note* Diagnosis Onset Date Resolution Status Diabetes type 2, uncontrolled acute Hyperlipidemia acute Lupus acute [facility] Work Phone: Evaluation note* Diagnosis Onset Date Resolution Status Diabetes type 2, uncontrolled acute LLQ pain acute Maxillary sinusitis, acute a cute [facility] [facility] Work Phone: Evaluation note* Diagnosis URI with cough and congestion- Primary Sore throat Acute pharyngitis Nasal sore Other diseases of nasal cavity and sinuses Sinobronchitis Unspecified sinusitis (chronic) [facility] Acute non-recurrent sinusitis, unspecified location- Primary [facility] ([facility]ative[facility]No reason for referral information availableWHolmes County [facility] Work Phone: Summary Purpose Family History Relationship Condition Age at Onset Recorded Date/T heavenly Not Specified Malignant neoplasm of cervix Unknown Malignant neoplasm of stomach Unknown Malignant neoplasm of urinary bladder Unk nown Hemorrhagic disorder Unknown Malignant neoplasm Unknown Endometriosis Unknown Cerebrovascular accident (CVA) Unknown Advance Directives No Advanced Directives Records FoundNo Advanced Directives Records FoundNo Advanced Directives Records FoundNo Advanced Directives Records Found Chief Complaint and Reason for Visit Chief Complaint Diabetes Mellitus Ty pe 2 A1c & medrefills Reason for Visit Diabetes type 2, unc ontrolled Hyperlipidemia Lupus Chief Complaint Diabetes Mellitus Ty pe 2 A1c/meds/sinus Reason for Visit Diabetes type 2, unc ontrolled LLQ pain Maxillary sinusitis, acute Chief Complaint Admit Date Diabetes Mellitus Type 2 A1c/meds April 192024 3:41pm Reason for Visit Admit Date Diabetes type 2, uncontrolled May 07, 2025 3:41pm Hypothyroidism May 07, 2025 3:41 pm Additional Source Comments INFORMATION SOURCE (unrecogn ized section and content) DATE CREATED AUTHOR 10/28/2018 [facility] DATE CREATED AUTHOR AUTHOR'S ORGANIZ ATION 07/03/2019 [facility] DATE CREATED AUTHOR AUTHOR'S ORGANIZ ATION 01/05/2025 [facility] DATE CREATED AUTHOR AUTHOR'S ORGANIZ ATION 03/01/2025 [facility] Goals (unrecognized section and content) Goals may be documented in a n alternate sectionGoals may be documented in an alternate sectionGoals may be documented in an alternate section Care Teams (unrecognized sec tion and content) Team Status: Active Member Role Status Dates Madonna Kline NP, CANAL SUPERINTENDENT-C Primary Care Provider Active Team Status: Inactive Member Role Status Dates Madonna Kline CANAL SUPERINTENDENT, CANAL SUPERINTENDENT-C Attending Provider, Referring Provider Active Team Status: Inactive Member Role Status Dates Madonna Jerezina MEJIA, CANAL SUPERINTENDENT-C Primary Care Provider, Attend ing Provider Active Team Status: Inactive Member Role Status Dates Madonna Jerezina MEJIA, CANAL SUPERINTENDENT-C Primary Care Provider Active Start: May 07, 2025 End: May 07, 2025 Madonna Kline NP, CANAL SUPERINTENDENT-C Attending Provider Active Start: May 07, 2025 End: May 07, 2025 Madonna Kline NP CANAL SUPERINTENDENT-C Referring Provider Active Start: May 07, 2025 End: May 07, 2025 Source Comments (unrecognize d section and content) In the event this informatio n is protected by the Federal Confidentiality of Alcohol and Drug Abuse Patient Records regulations: The Federal rules restrict any use of the information to criminally investigate or prosecute any alcohol or drug abuse patient.[facility] the event this information is protected by the Federal Confidentiality of Alcohol and Drug Abuse Patient Records regulations: The Federal rules restrict any use of the information to criminally investigate or prosecute any alcohol or drug abuse patient.[facility] Reason for Visit (unrecogniz ed section and content) Reason Comments Viral Syndrome Congestion for 4 day s, sore throat ears feel congestion. If script is needed she would like it printed. Also needs work excuse. Reason Comments Sinus Problem Has had cough and co ngestion for 3 weeks, has been using otc meds with no releif FOR RECORDS PERTAINING TO PATIENTS WHO ARE OR HAVE BEEN ENROLLED IN A CHEMICAL DEPENDENCY/SUBSTANCEABUSE PROGRAM, SOME INFORMATION MAY BE OMITTED. This clinical summary was aggregated from multiple sources. Caution should be exercised in using it in the provision of clinical care. This summary normalizes information from multiple sources, and as a consequence, information in this document may materially change the coding, format and clinical context of patient data. In addition, data may be omitted in some cases. CLINICAL DECISIONS SHOULD BE BASED ON THE PRIMARY CLINICAL RECORDS. [facility]. provides no warranty or guarantee of the accuracy or completeness of information in this document.
== END | disposition home or self-care (01) ==
PROVIDERS: PCP Nurse Practitioner; Referring Provider Nurse Practitioner; Visit Provider Nurse Practitioner
DX: N30.90 Cystitis, unspecified without hematuria (principal)
CPT/HCPCS: 87086